=== PATIENT | female | born 1950 | race Caucasian/White ===

== ENCOUNTER 2017-09-17 14:29 | Inpatient (IN) | payer OTHER ==
[2017-09-17] MEDS: FUROSEMIDE 40 MG/4 ML VIAL (J1940) IV ×2 (15:11→23:21)
[2017-09-17] MEDS: ASPIRIN 81 MG CHEW TABLET PO (15:11)
[2017-09-17 15:21] LABS: BASO % 0.2 % (0.0-1.0); EOS % 0.3 % (0.0-3.0); HEMATOCRIT 52.8 % (36.0-47.0); HEMOGLOBIN 15.4 g/dl (12.0-15.5); IMMATURE GRANULOCYTE % 0.7 % (0-3.0); LYMPH # 1.4 10^3/uL (1.5-4.5); LYMPH % 13.1 % (24.0-44.0); MEAN CORPUSCULAR HEMOGLOBIN 28.5 pg (27.0-33.0); MEAN CORPUSCULAR HGB CONC 29.2 g/dl (32.0-36.5); MEAN CORPUSCULAR VOLUME 97.6 fl (80.0-96.0); MONO # 0.8 10^3/uL (0.0-0.8); MONO % 7.6 % (0.0-5.0); NEUTROPHILS # 8.2 10^3/uL (1.8-7.7); NEUTROPHILS % 78.1 % (36.0-66.0); PLATELET COUNT, AUTOMATED 174 10^3/uL (150-450); RED BLOOD COUNT 5.41 10^6/uL (4.00-5.40); RED CELL DISTRIBUTION WIDTH 14.5 % (11.5-14.5); WHITE BLOOD COUNT 10.5 10^3/uL (4.0-10.0)
[2017-09-17] MEDS: IPRATROPIUM 0.5MG/ALBUTEROL 2.5MG INH SOL UD 3ML (DUONEB)(J7620) NEB ×4 (15:22→23:26)
[2017-09-17 15:26] LABS: INR 1.05; PROTHROMBIN TIME 13.8 SECONDS (12.4-14.5)
[2017-09-17 15:28] LABS: VENOUS BASE EXCESS -2.2 (-2.0-2.0); VENOUS HCO3 28.6 MEQ/L (23.0-27.0); VENOUS O2 SATURATION 75.6 % (60.0-80.0); VENOUS PARTIAL PRESSURE CO2 80.1 mmHg (38.0-50.0); VENOUS PARTIAL PRESSURE O2 40.7 mmHg (30.0-50.0); VENOUS STANDARD HCO3 22.1 MEQ/L
[2017-09-17 15:34] LABS: LACTIC ACID SEPSIS PROTOCOL 1.7 MMOL/L (0.4-2.0)
[2017-09-17 15:55] LABS: ALBUMIN 3.2 GM/DL (3.2-5.2); ALBUMIN/GLOBULIN RATIO 0.84 (1.00-1.93); ALKALINE PHOSPHATASE 90 U/L (45-117); ALT/SGPT 20 U/L (12-78); ANION GAP 5 MEQ/L (8-16); AST/SGOT 12 U/L (7-37); BILIRUBIN,DIRECT < 0.1 MG/DL (0.0-0.2); BILIRUBIN,TOTAL 0.3 MG/DL (0.2-1.0); BLOOD UREA NITROGEN 24 MG/DL (7-18); CARBON DIOXIDE LEVEL 30 MEQ/L (21-32); CHLORIDE LEVEL 107 MEQ/L (98-107); CPK CREATINE PHOSPHOKINASE 44 U/L (26-192); CREATININE FOR GFR 1.02 MG/DL (0.55-1.30); GLOMERULAR FILTRATION RATE 57.5 (>45); GLUCOSE, FASTING 121 MG/DL (70-100); POTASSIUM SERUM 4.7 MEQ/L (3.5-5.1); SODIUM LEVEL 142 MEQ/L (136-145); TROPONIN I < 0.02 NG/ML (< 0.10)
[2017-09-17 15:56] LABS: CK-MB VALUE MASS 4.8 NG/ML (<3.6); NT-PRO BNP 8249 PG/ML (<125)
[2017-09-17 16:50] LABS: ABG O2 SATURATION 98.2 % (95.0-99.0)
[2017-09-17 16:52] LABS: ABG BASE EXCESS 1.8 (-2.0-2.0); ABG HCO3 36.4 MEQ/L (22.0-26.0); ABG PARTIAL PRESSURE O2 132.4 mmHg (75.0-100.0); ABG STANDARD HCO3 26.1 MEQ/L (22.0-26.0)
[2017-09-17 16:53] LABS: ABG PARTIAL PRESSURE CO2 119.3 mmHg (35.0-45.0); ABG pH (ARTERIAL) 7.102 UNITS (7.350-7.450)
[2017-09-17] MEDS ORDERED: ONDANSETRON 4MG/2ML VIAL (J2405) IV (18:15)
[2017-09-17] MEDS ORDERED: IPRATROPIUM 0.5MG/ALBUTEROL 2.5MG INH SOL UD 3ML (DUONEB)(J7620) NEB (18:15)
[2017-09-17] MEDS: methylPREDNISolone INJ 125 MG/2 ML VIAL (J2930) IV (18:54)
[2017-09-17 19:07] LABS: ABG BASE EXCESS 4.2 (-2.0-2.0); ABG HCO3 34.4 MEQ/L (22.0-26.0); ABG O2 SATURATION 89.6 % (95.0-99.0); ABG PARTIAL PRESSURE O2 55.4 mmHg (75.0-100.0); ABG TOTAL CO2 36.8 MEQ/L (23.0-31.0); ABG pH (ARTERIAL) 7.261 UNITS (7.350-7.450)
[2017-09-17 19:12] LABS: ABG PARTIAL PRESSURE CO2 78.3 mmHg (35.0-45.0)
[2017-09-17] MEDS: FORMOTEROL FUMARATE 20 MCG/2 ML INHALATION SOLUTION (PERFOROMIST) INH (20:00)
[2017-09-17] MEDS: BUDESONIDE 0.5 MG/2 ML INHALATION SUSPENSION INH (20:00)
[2017-09-17] MEDS: LevoFLOXacin IV 750 MG in APPROPRIATE DILUENT 1 EA IV (23:21)
[2017-09-18] MEDS: methylPREDNISolone INJ 125 MG/2 ML VIAL (J2930) IV ×3 (03:18→18:57)
[2017-09-18] MEDS: IPRATROPIUM 0.5MG/ALBUTEROL 2.5MG INH SOL UD 3ML (DUONEB)(J7620) NEB ×5 (04:00→23:38)
[2017-09-18 04:58] LABS: HEMATOCRIT 47.7 % (36.0-47.0); HEMOGLOBIN 14.1 g/dl (12.0-15.5); MEAN CORPUSCULAR HGB CONC 29.6 g/dl (32.0-36.5); MEAN CORPUSCULAR VOLUME 94.8 fl (80.0-96.0); PLATELET COUNT, AUTOMATED 141 10^3/uL (150-450); RED BLOOD COUNT 5.03 10^6/uL (4.00-5.40); RED CELL DISTRIBUTION WIDTH 14.2 % (11.5-14.5); WHITE BLOOD COUNT 4.2 10^3/uL (4.0-10.0)
[2017-09-18 05:19] LABS: ALBUMIN 2.9 GM/DL (3.2-5.2); ALBUMIN/GLOBULIN RATIO 0.88 (1.00-1.93); ALKALINE PHOSPHATASE 74 U/L (45-117); ALT/SGPT 17 U/L (12-78); ANION GAP 3 MEQ/L (8-16); AST/SGOT 12 U/L (7-37); BILIRUBIN,TOTAL 0.4 MG/DL (0.2-1.0); BLOOD UREA NITROGEN 17 MG/DL (7-18); CALCIUM LEVEL 8.7 MG/DL (8.8-10.2); CARBON DIOXIDE LEVEL 36 MEQ/L (21-32); CHLORIDE LEVEL 106 MEQ/L (98-107); CREATININE FOR GFR 0.62 MG/DL (0.55-1.30); GLOMERULAR FILTRATION RATE > 60.0 (>45); GLUCOSE, FASTING 101 MG/DL (70-100); MAGNESIUM LEVEL 1.8 MG/DL (1.8-2.4); POTASSIUM SERUM 4.3 MEQ/L (3.5-5.1); SODIUM LEVEL 145 MEQ/L (136-145); TOTAL PROTEIN 6.2 GM/DL (6.4-8.2)
[2017-09-18 05:39] LABS: ABG BASE EXCESS 8.2 (-2.0-2.0); ABG HCO3 38.4 MEQ/L (22.0-26.0); ABG O2 SATURATION 90.6 % (95.0-99.0); ABG PARTIAL PRESSURE O2 60.6 mmHg (75.0-100.0); ABG STANDARD HCO3 31.9 MEQ/L (22.0-26.0); ABG TOTAL CO2 40.9 MEQ/L (23.0-31.0); ABG pH (ARTERIAL) 7.289 UNITS (7.350-7.450)
[2017-09-18 05:42] LABS: ABG PARTIAL PRESSURE CO2 81.8 mmHg (35.0-45.0)
[2017-09-18] MEDS: BUDESONIDE 0.5 MG/2 ML INHALATION SUSPENSION INH ×2 (09:07→20:33)
[2017-09-18] MEDS: FORMOTEROL FUMARATE 20 MCG/2 ML INHALATION SOLUTION (PERFOROMIST) INH ×2 (09:07→20:33)
[2017-09-18] MEDS: NICOTINE 21MG/24HR 1 EA TRANSDERMAL TD (09:30)
[2017-09-18] MEDS: ENOXAPARIN 40 MG/0.4 ML SYRINGE (J1650) SC (09:30)
[2017-09-18] MEDS: PANTOPRAZOLE 40MG TAB (PROTONIX) PO (09:31)
[2017-09-18] MEDS: FUROSEMIDE 40 MG/4 ML VIAL (J1940) IV ×2 (09:31→17:10)
[2017-09-19] MEDS: FUROSEMIDE 40 MG/4 ML VIAL (J1940) IV ×2 (00:08)
[2017-09-19] MEDS: LevoFLOXacin IV 750 MG in APPROPRIATE DILUENT 1 EA IV (00:09)
[2017-09-19] MEDS: IPRATROPIUM 0.5MG/ALBUTEROL 2.5MG INH SOL UD 3ML (DUONEB)(J7620) NEB ×6 (03:38→23:20)
[2017-09-19] MEDS: methylPREDNISolone INJ 125 MG/2 ML VIAL (J2930) IV (04:23)
[2017-09-19 06:03] LABS: HEMATOCRIT 47.3 % (36.0-47.0); HEMOGLOBIN 13.7 g/dl (12.0-15.5); MEAN CORPUSCULAR HEMOGLOBIN 28.1 pg (27.0-33.0); MEAN CORPUSCULAR VOLUME 96.9 fl (80.0-96.0); PLATELET COUNT, AUTOMATED 161 10^3/uL (150-450); RED BLOOD COUNT 4.88 10^6/uL (4.00-5.40); RED CELL DISTRIBUTION WIDTH 14.2 % (11.5-14.5); WHITE BLOOD COUNT 6.8 10^3/uL (4.0-10.0)
[2017-09-19 06:24] LABS: ALBUMIN/GLOBULIN RATIO 0.86 (1.00-1.93); ALKALINE PHOSPHATASE 68 U/L (45-117); ALT/SGPT 18 U/L (12-78); ANION GAP 0 MEQ/L (8-16); AST/SGOT 13 U/L (7-37); BILIRUBIN,TOTAL 0.4 MG/DL (0.2-1.0); BLOOD UREA NITROGEN 21 MG/DL (7-18); CARBON DIOXIDE LEVEL 42 MEQ/L (21-32); CHLORIDE LEVEL 104 MEQ/L (98-107); CREATININE FOR GFR 0.88 MG/DL (0.55-1.30); GLOMERULAR FILTRATION RATE > 60.0 (>45); GLUCOSE, FASTING 126 MG/DL (70-100); MAGNESIUM LEVEL 1.9 MG/DL (1.8-2.4); POTASSIUM SERUM 4.2 MEQ/L (3.5-5.1); SODIUM LEVEL 146 MEQ/L (136-145); TOTAL PROTEIN 6.5 GM/DL (6.4-8.2)
[2017-09-19] MEDS: BUDESONIDE 0.5 MG/2 ML INHALATION SUSPENSION INH ×2 (08:06→21:35)
[2017-09-19] MEDS: FORMOTEROL FUMARATE 20 MCG/2 ML INHALATION SOLUTION (PERFOROMIST) INH ×2 (08:06→21:36)
[2017-09-19] MEDS: PANTOPRAZOLE 40MG TAB (PROTONIX) PO (08:54)
[2017-09-19] MEDS: ENOXAPARIN 40 MG/0.4 ML SYRINGE (J1650) SC (08:55)
[2017-09-19] MEDS: NICOTINE 21MG/24HR 1 EA TRANSDERMAL TD (08:55)
[2017-09-19] MEDS: FUROSEMIDE 20 MG TAB PO (08:55)
[2017-09-19] MEDS: ACETAMINOPHEN TAB 650MG DOSE (2X325MG) PO (08:56)
[2017-09-19] MEDS: LevoFLOXacin 250 MG TABLET PO (14:43)
[2017-09-19] MEDS: methylPREDNISolone INJ 40 MG/1 ML VIAL (J2920) IV (14:43)
[2017-09-20] MEDS: methylPREDNISolone INJ 40 MG/1 ML VIAL (J2920) IV (03:15)
[2017-09-20] MEDS: IPRATROPIUM 0.5MG/ALBUTEROL 2.5MG INH SOL UD 3ML (DUONEB)(J7620) NEB ×6 (04:00→23:06)
[2017-09-20] MEDS: LevoFLOXacin 250 MG TABLET PO (05:53)
[2017-09-20 07:21] LABS: HEMATOCRIT 46.4 % (36.0-47.0); HEMOGLOBIN 13.3 g/dl (12.0-15.5); MEAN CORPUSCULAR HEMOGLOBIN 28.2 pg (27.0-33.0); MEAN CORPUSCULAR HGB CONC 28.7 g/dl (32.0-36.5); MEAN CORPUSCULAR VOLUME 98.5 fl (80.0-96.0); PLATELET COUNT, AUTOMATED 145 10^3/uL (150-450); RED BLOOD COUNT 4.71 10^6/uL (4.00-5.40); RED CELL DISTRIBUTION WIDTH 14.4 % (11.5-14.5); WHITE BLOOD COUNT 7.2 10^3/uL (4.0-10.0)
[2017-09-20 08:00] LABS: ALBUMIN 2.9 GM/DL (3.2-5.2); ALBUMIN/GLOBULIN RATIO 0.91 (1.00-1.93); ALKALINE PHOSPHATASE 63 U/L (45-117); ALT/SGPT 72 U/L (12-78); ANION GAP 0 MEQ/L (8-16); AST/SGOT 58 U/L (7-37); BILIRUBIN,TOTAL 0.3 MG/DL (0.2-1.0); BLOOD UREA NITROGEN 18 MG/DL (7-18); CALCIUM LEVEL 9.2 MG/DL (8.8-10.2); CARBON DIOXIDE LEVEL 43 MEQ/L (21-32); CHLORIDE LEVEL 105 MEQ/L (98-107); CREATININE FOR GFR 0.73 MG/DL (0.55-1.30); GLOMERULAR FILTRATION RATE > 60.0 (>45); GLUCOSE, FASTING 130 MG/DL (70-100); MAGNESIUM LEVEL 2.3 MG/DL (1.8-2.4); POTASSIUM SERUM 4.3 MEQ/L (3.5-5.1); SODIUM LEVEL 148 MEQ/L (136-145); TOTAL PROTEIN 6.1 GM/DL (6.4-8.2)
[2017-09-20] MEDS: PANTOPRAZOLE 40MG TAB (PROTONIX) PO (08:24)
[2017-09-20] MEDS: FUROSEMIDE 20 MG TAB PO ×2 (08:25→11:06)
[2017-09-20] MEDS: NICOTINE 21MG/24HR 1 EA TRANSDERMAL TD (08:25)
[2017-09-20] MEDS: ENOXAPARIN 40 MG/0.4 ML SYRINGE (J1650) SC (08:25)
[2017-09-20] MEDS: FORMOTEROL FUMARATE 20 MCG/2 ML INHALATION SOLUTION (PERFOROMIST) INH ×2 (08:30→23:06)
[2017-09-20] MEDS: BUDESONIDE 0.5 MG/2 ML INHALATION SUSPENSION INH ×2 (08:30→23:06)
[2017-09-20] MEDS: predniSONE 20 MG TAB PO (11:06)
[2017-09-20] MEDS: D5W 1,000 ML IV (14:21)
[2017-09-20] MEDS: FUROSEMIDE 40 MG TAB PO (16:55)
[2017-09-20 19:06] LABS: ANION GAP 3 MEQ/L (8-16); BLOOD UREA NITROGEN 19 MG/DL (7-18); CALCIUM LEVEL 8.8 MG/DL (8.8-10.2); CARBON DIOXIDE LEVEL 42 MEQ/L (21-32); CHLORIDE LEVEL 101 MEQ/L (98-107); CREATININE FOR GFR 0.88 MG/DL (0.55-1.30); GLOMERULAR FILTRATION RATE > 60.0 (>45); GLUCOSE, FASTING 176 MG/DL (70-100); POTASSIUM SERUM 3.7 MEQ/L (3.5-5.1); SODIUM LEVEL 146 MEQ/L (136-145)
[2017-09-21 00:40] LABS: ANION GAP 2 MEQ/L (8-16); BLOOD UREA NITROGEN 19 MG/DL (7-18); CALCIUM LEVEL 8.8 MG/DL (8.8-10.2); CARBON DIOXIDE LEVEL 44 MEQ/L (21-32); CHLORIDE LEVEL 100 MEQ/L (98-107); CREATININE FOR GFR 0.81 MG/DL (0.55-1.30); GLOMERULAR FILTRATION RATE > 60.0 (>45); GLUCOSE, FASTING 148 MG/DL (70-100); POTASSIUM SERUM 3.3 MEQ/L (3.5-5.1); SODIUM LEVEL 146 MEQ/L (136-145)
[2017-09-21] MEDS: IPRATROPIUM 0.5MG/ALBUTEROL 2.5MG INH SOL UD 3ML (DUONEB)(J7620) NEB ×3 (04:08→11:17)
[2017-09-21] MEDS: LevoFLOXacin 250 MG TABLET PO (05:22)
[2017-09-21 05:55] LABS: HEMATOCRIT 47.4 % (36.0-47.0); HEMOGLOBIN 13.5 g/dl (12.0-15.5); MEAN CORPUSCULAR HEMOGLOBIN 27.7 pg (27.0-33.0); MEAN CORPUSCULAR HGB CONC 28.5 g/dl (32.0-36.5); MEAN CORPUSCULAR VOLUME 97.3 fl (80.0-96.0); PLATELET COUNT, AUTOMATED 115 10^3/uL (150-450); RED BLOOD COUNT 4.87 10^6/uL (4.00-5.40); RED CELL DISTRIBUTION WIDTH 14.1 % (11.5-14.5); WHITE BLOOD COUNT 7.6 10^3/uL (4.0-10.0)
[2017-09-21 06:37] LABS: CARBON DIOXIDE LEVEL 44 MEQ/L (21-32)
[2017-09-21 06:38] LABS: ANION GAP 1 MEQ/L (8-16); BLOOD UREA NITROGEN 18 MG/DL (7-18); CHLORIDE LEVEL 100 MEQ/L (98-107); CREATININE FOR GFR 0.59 MG/DL (0.55-1.30); GLOMERULAR FILTRATION RATE > 60.0 (>45); GLUCOSE, FASTING 104 MG/DL (70-100); POTASSIUM SERUM 3.3 MEQ/L (3.5-5.1); SODIUM LEVEL 145 MEQ/L (136-145)
[2017-09-21 06:39] LABS: ALBUMIN 2.8 GM/DL (3.2-5.2); ALBUMIN/GLOBULIN RATIO 0.88 (1.00-1.93); ALKALINE PHOSPHATASE 57 U/L (45-117); ALT/SGPT 77 U/L (12-78); AST/SGOT 49 U/L (7-37); BILIRUBIN,TOTAL 0.4 MG/DL (0.2-1.0); CALCIUM LEVEL 8.8 MG/DL (8.8-10.2)
[2017-09-21] MEDS: BUDESONIDE 0.5 MG/2 ML INHALATION SUSPENSION INH (07:10)
[2017-09-21] MEDS: FORMOTEROL FUMARATE 20 MCG/2 ML INHALATION SOLUTION (PERFOROMIST) INH (07:10)
[2017-09-21] MEDS: PANTOPRAZOLE 40MG TAB (PROTONIX) PO (07:48)
[2017-09-21] MEDS: FUROSEMIDE 40 MG TAB PO (07:49)
[2017-09-21] MEDS: ENOXAPARIN 40 MG/0.4 ML SYRINGE (J1650) SC (07:49)
[2017-09-21] MEDS: NICOTINE 21MG/24HR 1 EA TRANSDERMAL TD (07:49)
[2017-09-21] MEDS: predniSONE 20 MG TAB PO (07:49)
[2017-09-21] MEDS: D5W 1,000 ML IV (07:50)
[2017-09-21] MEDS ORDERED: FUROSEMIDE 40 MG TAB PO (09:00)
[2017-09-21 09:49] LABS: MAGNESIUM LEVEL 1.9 MG/DL (1.8-2.4)
== END 2017-09-21 14:44 | disposition home or self-care (01) | DRG 291 ==
LOC: M MSPAV 09-20 00:20 → M PCU 09-18 15:33 → M ED 14:29 → M ED INP 18:08 → M ICU 21:03
DX: I50.31 Acute diastolic (congestive) heart failure (principal); J96.02 Acute respiratory failure with hypercapnia; J18.9 Pneumonia, unspecified organism; J44.1 Chronic obstructive pulmonary disease with (acute) exacerbation; E87.1 Hypo-osmolality and hyponatremia; F17.200 Nicotine dependence, unspecified, uncomplicated; Z79.899 Other long term (current) drug therapy; Z88.0 Allergy status to penicillin; D72.829 Elevated white blood cell count, unspecified

== ENCOUNTER 2017-10-16 15:11 | Inpatient (IN) | payer OTHER ==
[2017-10-16] MEDS: methylPREDNISolone INJ 125 MG/2 ML VIAL (J2930) IV (16:13)
[2017-10-16 16:19] LABS: ABG HCO3 38.1 MEQ/L (22.0-26.0); ABG PARTIAL PRESSURE O2 82.8 mmHg (75.0-100.0); ABG STANDARD HCO3 31.8 MEQ/L (22.0-26.0); ABG TOTAL CO2 40.6 MEQ/L (23.0-31.0); ABG pH (ARTERIAL) 7.288 UNITS (7.350-7.450)
[2017-10-16 16:22] LABS: BASO % 0.3 % (0.0-1.0); EOS % 0.6 % (0.0-3.0); HEMOGLOBIN 13.9 g/dl (12.0-15.5); IMMATURE GRANULOCYTE % 0.6 % (0-3.0); LYMPH # 1.3 10^3/uL (1.5-4.5); LYMPH % 19.3 % (24.0-44.0); MEAN CORPUSCULAR HEMOGLOBIN 26.7 pg (27.0-33.0); MEAN CORPUSCULAR HGB CONC 28.4 g/dl (32.0-36.5); MEAN CORPUSCULAR VOLUME 94.2 fl (80.0-96.0); MONO # 0.5 10^3/uL (0.0-0.8); MONO % 7.6 % (0.0-5.0); NEUTROPHILS # 4.8 10^3/uL (1.8-7.7); NEUTROPHILS % 71.6 % (36.0-66.0); PLATELET COUNT, AUTOMATED 183 10^3/uL (150-450); RED CELL DISTRIBUTION WIDTH 16.1 % (11.5-14.5); WHITE BLOOD COUNT 6.7 10^3/uL (4.0-10.0)
[2017-10-16 16:23] LABS: ABG PARTIAL PRESSURE CO2 81.5 mmHg (35.0-45.0)
[2017-10-16 16:35] LABS: ANION GAP 2 MEQ/L (8-16); BLOOD UREA NITROGEN 14 MG/DL (7-18); CALCIUM LEVEL 9.5 MG/DL (8.8-10.2); CARBON DIOXIDE LEVEL 41 MEQ/L (21-32); CHLORIDE LEVEL 104 MEQ/L (98-107); CPK CREATINE PHOSPHOKINASE 30 U/L (26-192); CREATININE FOR GFR 0.66 MG/DL (0.55-1.30); GLOMERULAR FILTRATION RATE > 60.0 (>45); GLUCOSE, FASTING 128 MG/DL (70-100); POTASSIUM SERUM 3.6 MEQ/L (3.5-5.1); SODIUM LEVEL 147 MEQ/L (136-145); TROPONIN I < 0.02 NG/ML (< 0.10)
[2017-10-16 16:40] LABS: CK-MB VALUE MASS 1.9 NG/ML (<3.6); MB/CK RELATIVE INDEX 6.33 (< OR =4); NT-PRO BNP 3243 PG/ML (<125); THYROID STIMULATING HORMONE 0.527 uIU/ML (0.358-3.740)
[2017-10-16 16:56] LABS: LACTIC ACID SEPSIS PROTOCOL 0.9 MMOL/L (0.4-2.0)
[2017-10-16 16:58] LABS: PROTHROMBIN TIME 13.3 SECONDS (12.4-14.5)
[2017-10-16 17:02] LABS: PARTIAL THROMBOPLASTIN TIME 25.9 SECONDS (26.8-37.9)
[2017-10-16] MEDS: FUROSEMIDE 40 MG/4 ML VIAL (J1940) IV (17:49)
[2017-10-16] MEDS ORDERED: FAMOTIDINE 20 MG TAB PO (19:00)
[2017-10-16] MEDS ORDERED: IPRATROPIUM 0.5MG/ALBUTEROL 2.5MG INH SOL UD 3ML (DUONEB)(J7620) NEB (19:00)
[2017-10-16] MEDS: PANTOPRAZOLE 40MG TAB (PROTONIX) PO (20:00)
[2017-10-16] MEDS: AZITHROMYCIN 250 MG TAB PO (20:11)
[2017-10-16] MEDS: IPRATROPIUM 0.5MG/ALBUTEROL 2.5MG INH SOL UD 3ML (DUONEB)(J7620) NEB (20:12)
[2017-10-16] MEDS: ADVAIR HFA 115/21MCG INHALER INH (21:00)
[2017-10-17] MEDS: methylPREDNISolone INJ 125 MG/2 ML VIAL (J2930) IV ×3 (00:26→15:18)
[2017-10-17] MEDS: FUROSEMIDE 40 MG/4 ML VIAL (J1940) IV ×2 (00:27→12:52)
[2017-10-17 07:12] LABS: BASO % 0.2 % (0.0-1.0); HEMATOCRIT 47.1 % (36.0-47.0); HEMOGLOBIN 13.4 g/dl (12.0-15.5); IMMATURE GRANULOCYTE % 0.5 % (0-3.0); LYMPH # 0.7 10^3/uL (1.5-4.5); LYMPH % 11.1 % (24.0-44.0); MEAN CORPUSCULAR HGB CONC 28.5 g/dl (32.0-36.5); MEAN CORPUSCULAR VOLUME 94.8 fl (80.0-96.0); MONO # 0.1 10^3/uL (0.0-0.8); MONO % 2.1 % (0.0-5.0); NEUTROPHILS # 5.4 10^3/uL (1.8-7.7); NEUTROPHILS % 86.1 % (36.0-66.0); PLATELET COUNT, AUTOMATED 160 10^3/uL (150-450); RED BLOOD COUNT 4.97 10^6/uL (4.00-5.40); RED CELL DISTRIBUTION WIDTH 15.7 % (11.5-14.5); WHITE BLOOD COUNT 6.3 10^3/uL (4.0-10.0)
[2017-10-17 07:16] LABS: ABG BASE EXCESS 14.2 (-2.0-2.0); ABG HCO3 46.7 MEQ/L (22.0-26.0); ABG PARTIAL PRESSURE CO2 110.3 mmHg (35.0-45.0); ABG TOTAL CO2 50.1 MEQ/L (23.0-31.0); ABG pH (ARTERIAL) 7.245 UNITS (7.350-7.450)
[2017-10-17 07:17] LABS: ABG O2 SATURATION 94.9 % (95.0-99.0)
[2017-10-17] MEDS: ADVAIR HFA 115/21MCG INHALER INH ×2 (07:30→19:46)
[2017-10-17] MEDS: IPRATROPIUM 0.5MG/ALBUTEROL 2.5MG INH SOL UD 3ML (DUONEB)(J7620) NEB ×4 (07:30→20:00)
[2017-10-17 07:31] LABS: ANION GAP 1 MEQ/L (8-16); BLOOD UREA NITROGEN 17 MG/DL (7-18); CALCIUM LEVEL 9.1 MG/DL (8.8-10.2); CARBON DIOXIDE LEVEL 43 MEQ/L (21-32); CHLORIDE LEVEL 103 MEQ/L (98-107); CREATININE FOR GFR 0.52 MG/DL (0.55-1.30); GLOMERULAR FILTRATION RATE > 60.0 (>45); GLUCOSE, FASTING 146 MG/DL (70-100); POTASSIUM SERUM 4.3 MEQ/L (3.5-5.1); SODIUM LEVEL 147 MEQ/L (136-145)
[2017-10-17] MEDS: PANTOPRAZOLE 40MG TAB (PROTONIX) PO ×2 (08:18→13:25)
[2017-10-17] MEDS: ENOXAPARIN 40 MG/0.4 ML SYRINGE (J1650) SC (08:18)
[2017-10-17 11:05] LABS: ABG BASE EXCESS 12.4 (-2.0-2.0); ABG HCO3 43.6 MEQ/L (22.0-26.0); ABG O2 SATURATION 95.4 % (95.0-99.0); ABG PARTIAL PRESSURE O2 79.7 mmHg (75.0-100.0); ABG STANDARD HCO3 36.2 MEQ/L (22.0-26.0); ABG TOTAL CO2 46.6 MEQ/L (23.0-31.0); ABG pH (ARTERIAL) 7.279 UNITS (7.350-7.450)
[2017-10-17 11:07] LABS: ABG PARTIAL PRESSURE CO2 95.2 mmHg (35.0-45.0)
[2017-10-17 14:01] LABS: D-DIMER QUANT 3096.9 ng/ml (<500)
[2017-10-17] MEDS: NICOTINE 21MG/24HR 1 EA TRANSDERMAL TD (15:18)
[2017-10-17] MEDS: ENOXAPARIN 100MG/1ML SYRINGE (J1650) SC (20:09)
[2017-10-18] MEDS: methylPREDNISolone INJ 125 MG/2 ML VIAL (J2930) IV ×3 (01:40→16:21)
[2017-10-18 05:18] LABS: HEMATOCRIT 43.5 % (36.0-47.0); HEMOGLOBIN 12.3 g/dl (12.0-15.5); IMMATURE GRANULOCYTE % 0.4 % (0-3.0); LYMPH # 0.9 10^3/uL (1.5-4.5); LYMPH % 12.6 % (24.0-44.0); MEAN CORPUSCULAR HEMOGLOBIN 26.6 pg (27.0-33.0); MEAN CORPUSCULAR HGB CONC 28.3 g/dl (32.0-36.5); MONO # 0.3 10^3/uL (0.0-0.8); MONO % 3.7 % (0.0-5.0); NEUTROPHILS # 5.6 10^3/uL (1.8-7.7); NEUTROPHILS % 83.3 % (36.0-66.0); PLATELET COUNT, AUTOMATED 157 10^3/uL (150-450); RED BLOOD COUNT 4.63 10^6/uL (4.00-5.40); RED CELL DISTRIBUTION WIDTH 15.6 % (11.5-14.5); WHITE BLOOD COUNT 6.7 10^3/uL (4.0-10.0)
[2017-10-18 05:39] LABS: BLOOD UREA NITROGEN 19 MG/DL (7-18); CHLORIDE LEVEL 99 MEQ/L (98-107); CREATININE FOR GFR 0.62 MG/DL (0.55-1.30); GLOMERULAR FILTRATION RATE > 60.0 (>45); GLUCOSE, FASTING 125 MG/DL (70-100); POTASSIUM SERUM 4.5 MEQ/L (3.5-5.1); SODIUM LEVEL 147 MEQ/L (136-145)
[2017-10-18 05:51] LABS: ANION GAP 1 MEQ/L (8-16); CARBON DIOXIDE LEVEL 47 MEQ/L (21-32)
[2017-10-18 06:09] LABS: ABG BASE EXCESS 16.7 (-2.0-2.0); ABG HCO3 46.2 MEQ/L (22.0-26.0); ABG O2 SATURATION 96.3 % (95.0-99.0); ABG STANDARD HCO3 40.7 MEQ/L (22.0-26.0); ABG TOTAL CO2 48.7 MEQ/L (23.0-31.0)
[2017-10-18 06:12] LABS: ABG PARTIAL PRESSURE CO2 81.8 mmHg (35.0-45.0)
[2017-10-18] MEDS: ADVAIR HFA 115/21MCG INHALER INH ×2 (07:56→19:40)
[2017-10-18] MEDS: IPRATROPIUM 0.5MG/ALBUTEROL 2.5MG INH SOL UD 3ML (DUONEB)(J7620) NEB ×4 (07:57→19:40)
[2017-10-18] MEDS ORDERED: ISOVUE-370 76% 100ML VIAL (Q9967) As Ordered (08:28)
[2017-10-18] MEDS: PANTOPRAZOLE 40MG TAB (PROTONIX) PO (09:12)
[2017-10-18] MEDS: NICOTINE 21MG/24HR 1 EA TRANSDERMAL TD (09:12)
[2017-10-18] MEDS: ENOXAPARIN 100MG/1ML SYRINGE (J1650) SC (09:13)
[2017-10-18 10:21] LABS: ABG BASE EXCESS 12.6 (-2.0-2.0); ABG HCO3 41.8 MEQ/L (22.0-26.0); ABG PARTIAL PRESSURE O2 103.2 mmHg (75.0-100.0); ABG STANDARD HCO3 36.4 MEQ/L (22.0-26.0); ABG TOTAL CO2 44.2 MEQ/L (23.0-31.0); ABG pH (ARTERIAL) 7.346 UNITS (7.350-7.450)
[2017-10-18 10:24] LABS: ABG PARTIAL PRESSURE CO2 78.2 mmHg (35.0-45.0)
[2017-10-18] MEDS: ENOXAPARIN 80 MG/0.8 ML SYRINGE (J1650) SC (21:03)
[2017-10-19] MEDS: methylPREDNISolone INJ 125 MG/2 ML VIAL (J2930) IV ×2 (00:33→08:18)
[2017-10-19 05:13] LABS: BASO % 0.2 % (0.0-1.0); HEMATOCRIT 43.1 % (36.0-47.0); HEMOGLOBIN 12.4 g/dl (12.0-15.5); IMMATURE GRANULOCYTE % 0.5 % (0-3.0); LYMPH # 0.5 10^3/uL (1.5-4.5); LYMPH % 8.5 % (24.0-44.0); MEAN CORPUSCULAR HEMOGLOBIN 26.6 pg (27.0-33.0); MEAN CORPUSCULAR HGB CONC 28.8 g/dl (32.0-36.5); MEAN CORPUSCULAR VOLUME 92.5 fl (80.0-96.0); MONO # 0.2 10^3/uL (0.0-0.8); MONO % 3.2 % (0.0-5.0); NEUTROPHILS # 5.1 10^3/uL (1.8-7.7); NEUTROPHILS % 87.6 % (36.0-66.0); PLATELET COUNT, AUTOMATED 178 10^3/uL (150-450); RED BLOOD COUNT 4.66 10^6/uL (4.00-5.40); RED CELL DISTRIBUTION WIDTH 15.4 % (11.5-14.5); WHITE BLOOD COUNT 5.9 10^3/uL (4.0-10.0)
[2017-10-19 05:31] LABS: ANION GAP 4 MEQ/L (8-16); BLOOD UREA NITROGEN 17 MG/DL (7-18); CALCIUM LEVEL 9.4 MG/DL (8.8-10.2); CARBON DIOXIDE LEVEL 42 MEQ/L (21-32); CHLORIDE LEVEL 101 MEQ/L (98-107); CREATININE FOR GFR 0.52 MG/DL (0.55-1.30); GLOMERULAR FILTRATION RATE > 60.0 (>45); GLUCOSE, FASTING 161 MG/DL (70-100); POTASSIUM SERUM 3.7 MEQ/L (3.5-5.1); SODIUM LEVEL 147 MEQ/L (136-145)
[2017-10-19 05:56] LABS: ABG BASE EXCESS 13.5 (-2.0-2.0); ABG HCO3 42.3 MEQ/L (22.0-26.0); ABG O2 SATURATION 95.6 % (95.0-99.0); ABG PARTIAL PRESSURE O2 79.2 mmHg (75.0-100.0); ABG STANDARD HCO3 37.2 MEQ/L (22.0-26.0); ABG TOTAL CO2 44.6 MEQ/L (23.0-31.0); ABG pH (ARTERIAL) 7.366 UNITS (7.350-7.450)
[2017-10-19 05:59] LABS: ABG PARTIAL PRESSURE CO2 75.5 mmHg (35.0-45.0)
[2017-10-19] MEDS: ADVAIR HFA 115/21MCG INHALER INH ×2 (07:39→21:42)
[2017-10-19] MEDS: IPRATROPIUM 0.5MG/ALBUTEROL 2.5MG INH SOL UD 3ML (DUONEB)(J7620) NEB ×4 (07:42→20:00)
[2017-10-19] MEDS: NICOTINE 21MG/24HR 1 EA TRANSDERMAL TD (08:17)
[2017-10-19] MEDS: ENOXAPARIN 80 MG/0.8 ML SYRINGE (J1650) SC ×2 (08:18→20:19)
[2017-10-19] MEDS: PANTOPRAZOLE 40MG TAB (PROTONIX) PO (08:18)
[2017-10-19] MEDS: FUROSEMIDE 40 MG TAB PO (08:58)
[2017-10-19] MEDS: ACETAMINOPHEN 500 MG TAB PO (08:59)
[2017-10-20 06:24] LABS: HEMATOCRIT 44.6 % (36.0-47.0); HEMOGLOBIN 12.9 g/dl (12.0-15.5); IMMATURE GRANULOCYTE % 0.6 % (0-3.0); LYMPH # 1.2 10^3/uL (1.5-4.5); MEAN CORPUSCULAR HEMOGLOBIN 26.8 pg (27.0-33.0); MEAN CORPUSCULAR HGB CONC 28.9 g/dl (32.0-36.5); MEAN CORPUSCULAR VOLUME 92.5 fl (80.0-96.0); MONO # 0.4 10^3/uL (0.0-0.8); MONO % 8.6 % (0.0-5.0); NEUTROPHILS # 3.5 10^3/uL (1.8-7.7); NEUTROPHILS % 67.8 % (36.0-66.0); PLATELET COUNT, AUTOMATED 184 10^3/uL (150-450); RED BLOOD COUNT 4.82 10^6/uL (4.00-5.40); RED CELL DISTRIBUTION WIDTH 15.4 % (11.5-14.5); WHITE BLOOD COUNT 5.1 10^3/uL (4.0-10.0)
[2017-10-20 06:46] LABS: BLOOD UREA NITROGEN 18 MG/DL (7-18); CALCIUM LEVEL 9.1 MG/DL (8.8-10.2); CHLORIDE LEVEL 103 MEQ/L (98-107); CREATININE FOR GFR 0.48 MG/DL (0.55-1.30); GLOMERULAR FILTRATION RATE > 60.0 (>45); GLUCOSE, FASTING 86 MG/DL (70-100); POTASSIUM SERUM 3.5 MEQ/L (3.5-5.1); SODIUM LEVEL 152 MEQ/L (136-145)
[2017-10-20 06:59] LABS: ANION GAP 1 MEQ/L (8-16)
[2017-10-20 07:03] LABS: CARBON DIOXIDE LEVEL 48 MEQ/L (21-32)
[2017-10-20] MEDS: IPRATROPIUM 0.5MG/ALBUTEROL 2.5MG INH SOL UD 3ML (DUONEB)(J7620) NEB ×4 (08:00→20:00)
[2017-10-20] MEDS: ADVAIR HFA 115/21MCG INHALER INH ×2 (08:35→20:44)
[2017-10-20] MEDS: predniSONE 20 MG TAB PO (08:59)
[2017-10-20] MEDS: FUROSEMIDE 40 MG TAB PO (09:00)
[2017-10-20] MEDS: ENOXAPARIN 80 MG/0.8 ML SYRINGE (J1650) SC ×2 (09:00→21:11)
[2017-10-20] MEDS: PANTOPRAZOLE 40MG TAB (PROTONIX) PO (09:00)
[2017-10-20] MEDS: NICOTINE 21MG/24HR 1 EA TRANSDERMAL TD (09:01)
[2017-10-20] MEDS: D5W 1,000 ML IV (09:02)
[2017-10-20 14:35] LABS: ABG BASE EXCESS 15.7 (-2.0-2.0); ABG HCO3 43.9 MEQ/L (22.0-26.0); ABG O2 SATURATION 93.2 % (95.0-99.0); ABG PARTIAL PRESSURE O2 64.2 mmHg (75.0-100.0); ABG STANDARD HCO3 39.5 MEQ/L (22.0-26.0); ABG TOTAL CO2 46.1 MEQ/L (23.0-31.0); ABG pH (ARTERIAL) 7.409 UNITS (7.350-7.450)
[2017-10-20] MEDS: ACETAMINOPHEN 500 MG TAB PO (15:18)
[2017-10-21] MEDS: D5W 1,000 ML IV (00:55)
[2017-10-21 06:22] LABS: BASO % 0.2 % (0.0-1.0); EOS % 0.2 % (0.0-3.0); HEMATOCRIT 43.2 % (36.0-47.0); HEMOGLOBIN 12.6 g/dl (12.0-15.5); IMMATURE GRANULOCYTE % 0.7 % (0-3.0); LYMPH % 22.5 % (24.0-44.0); MEAN CORPUSCULAR HEMOGLOBIN 26.8 pg (27.0-33.0); MEAN CORPUSCULAR HGB CONC 29.2 g/dl (32.0-36.5); MEAN CORPUSCULAR VOLUME 91.9 fl (80.0-96.0); MONO # 0.4 10^3/uL (0.0-0.8); MONO % 8.8 % (0.0-5.0); NEUTROPHILS # 2.9 10^3/uL (1.8-7.7); NEUTROPHILS % 67.6 % (36.0-66.0); PLATELET COUNT, AUTOMATED 190 10^3/uL (150-450); RED CELL DISTRIBUTION WIDTH 15.3 % (11.5-14.5); WHITE BLOOD COUNT 4.2 10^3/uL (4.0-10.0)
[2017-10-21 06:37] LABS: ANION GAP 2 MEQ/L (8-16); BLOOD UREA NITROGEN 14 MG/DL (7-18); CALCIUM LEVEL 8.8 MG/DL (8.8-10.2); CARBON DIOXIDE LEVEL 44 MEQ/L (21-32); CHLORIDE LEVEL 102 MEQ/L (98-107); CREATININE FOR GFR 0.46 MG/DL (0.55-1.30); GLOMERULAR FILTRATION RATE > 60.0 (>45); GLUCOSE, FASTING 89 MG/DL (70-100); POTASSIUM SERUM 3.3 MEQ/L (3.5-5.1); SODIUM LEVEL 148 MEQ/L (136-145)
[2017-10-21 07:32] LABS: ABG BASE EXCESS 11.8 (-2.0-2.0); ABG HCO3 39.5 MEQ/L (22.0-26.0); ABG O2 SATURATION 97.6 % (95.0-99.0); ABG PARTIAL PRESSURE O2 93.9 mmHg (75.0-100.0); ABG STANDARD HCO3 35.6 MEQ/L (22.0-26.0); ABG TOTAL CO2 41.5 MEQ/L (23.0-31.0); ABG pH (ARTERIAL) 7.398 UNITS (7.350-7.450)
[2017-10-21 07:35] LABS: ABG PARTIAL PRESSURE CO2 65.5 mmHg (35.0-45.0)
[2017-10-21] MEDS: ADVAIR HFA 115/21MCG INHALER INH ×2 (07:44→21:48)
[2017-10-21] MEDS: IPRATROPIUM 0.5MG/ALBUTEROL 2.5MG INH SOL UD 3ML (DUONEB)(J7620) NEB ×4 (07:45→20:00)
[2017-10-21] MEDS: FUROSEMIDE 40 MG TAB PO (10:07)
[2017-10-21] MEDS: predniSONE 20 MG TAB PO (10:07)
[2017-10-21] MEDS: NICOTINE 21MG/24HR 1 EA TRANSDERMAL TD (10:08)
[2017-10-21] MEDS: PANTOPRAZOLE 40MG TAB (PROTONIX) PO (10:08)
[2017-10-21] MEDS: ACETAMINOPHEN 500 MG TAB PO (10:09)
[2017-10-21] MEDS: ENOXAPARIN 80 MG/0.8 ML SYRINGE (J1650) SC ×2 (10:09→20:05)
[2017-10-21] MEDS: POTASSIUM CHLORIDE INJ 40 MEQ in D5W 1,000 ML IV (10:10)
[2017-10-22] MEDS: POTASSIUM CHLORIDE INJ 40 MEQ in D5W 1,000 ML IV (04:12)
[2017-10-22 06:00] LABS: BASO % 0.2 % (0.0-1.0); EOS % 0.2 % (0.0-3.0); HEMATOCRIT 44.5 % (36.0-47.0); HEMOGLOBIN 12.7 g/dl (12.0-15.5); IMMATURE GRANULOCYTE % 1.1 % (0-3.0); LYMPH # 1.4 10^3/uL (1.5-4.5); LYMPH % 28.7 % (24.0-44.0); MEAN CORPUSCULAR HEMOGLOBIN 26.2 pg (27.0-33.0); MEAN CORPUSCULAR HGB CONC 28.5 g/dl (32.0-36.5); MEAN CORPUSCULAR VOLUME 91.9 fl (80.0-96.0); MONO # 0.4 10^3/uL (0.0-0.8); MONO % 7.6 % (0.0-5.0); NEUTROPHILS % 62.2 % (36.0-66.0); PLATELET COUNT, AUTOMATED 188 10^3/uL (150-450); RED BLOOD COUNT 4.84 10^6/uL (4.00-5.40); RED CELL DISTRIBUTION WIDTH 15.6 % (11.5-14.5); WHITE BLOOD COUNT 4.7 10^3/uL (4.0-10.0)
[2017-10-22 06:23] LABS: CARBON DIOXIDE LEVEL 45 MEQ/L (21-32)
[2017-10-22 06:24] LABS: ANION GAP 2 MEQ/L (8-16); BLOOD UREA NITROGEN 12 MG/DL (7-18); CHLORIDE LEVEL 101 MEQ/L (98-107); CREATININE FOR GFR 0.46 MG/DL (0.55-1.30); GLOMERULAR FILTRATION RATE > 60.0 (>45); GLUCOSE, FASTING 92 MG/DL (70-100); POTASSIUM SERUM 3.7 MEQ/L (3.5-5.1); SODIUM LEVEL 148 MEQ/L (136-145)
[2017-10-22] MEDS: IPRATROPIUM 0.5MG/ALBUTEROL 2.5MG INH SOL UD 3ML (DUONEB)(J7620) NEB ×4 (08:00→20:00)
[2017-10-22 09:03] LABS: ABG BASE EXCESS 13.9 (-2.0-2.0); ABG HCO3 41.8 MEQ/L (22.0-26.0); ABG O2 SATURATION 97.4 % (95.0-99.0); ABG PARTIAL PRESSURE O2 89.6 mmHg (75.0-100.0); ABG STANDARD HCO3 37.8 MEQ/L (22.0-26.0); ABG TOTAL CO2 43.9 MEQ/L (23.0-31.0)
[2017-10-22 09:05] LABS: ABG PARTIAL PRESSURE CO2 67.5 mmHg (35.0-45.0)
[2017-10-22] MEDS: ADVAIR HFA 115/21MCG INHALER INH ×2 (09:55→21:00)
[2017-10-22] MEDS: ENOXAPARIN 80 MG/0.8 ML SYRINGE (J1650) SC ×2 (10:09→20:25)
[2017-10-22] MEDS: NICOTINE 21MG/24HR 1 EA TRANSDERMAL TD (10:09)
[2017-10-22] MEDS: predniSONE 20 MG TAB PO (10:09)
[2017-10-22] MEDS: PANTOPRAZOLE 40MG TAB (PROTONIX) PO (10:09)
[2017-10-22] MEDS: ACETAMINOPHEN 500 MG TAB PO (10:10)
[2017-10-22] MEDS: FUROSEMIDE 40 MG TAB PO (10:10)
[2017-10-23] MEDS: IPRATROPIUM 0.5MG/ALBUTEROL 2.5MG INH SOL UD 3ML (DUONEB)(J7620) NEB ×2 (08:00→11:39)
[2017-10-23] MEDS: ADVAIR HFA 115/21MCG INHALER INH (08:22)
[2017-10-23] MEDS: predniSONE 20 MG TAB PO (08:41)
[2017-10-23] MEDS: PANTOPRAZOLE 40MG TAB (PROTONIX) PO (08:42)
[2017-10-23] MEDS: FUROSEMIDE 40 MG TAB PO (08:42)
[2017-10-23] MEDS: NICOTINE 21MG/24HR 1 EA TRANSDERMAL TD (08:43)
[2017-10-23] MEDS: ENOXAPARIN 80 MG/0.8 ML SYRINGE (J1650) SC (08:43)
[2017-10-23 09:22] LABS: BASO % 0.3 % (0.0-1.0); EOS % 0.2 % (0.0-3.0); HEMATOCRIT 47.9 % (36.0-47.0); HEMOGLOBIN 13.8 g/dl (12.0-15.5); IMMATURE GRANULOCYTE % 1.4 % (0-3.0); LYMPH # 1.7 10^3/uL (1.5-4.5); LYMPH % 28.2 % (24.0-44.0); MEAN CORPUSCULAR HEMOGLOBIN 26.6 pg (27.0-33.0); MEAN CORPUSCULAR HGB CONC 28.8 g/dl (32.0-36.5); MEAN CORPUSCULAR VOLUME 92.3 fl (80.0-96.0); MONO # 0.4 10^3/uL (0.0-0.8); MONO % 6.8 % (0.0-5.0); NEUTROPHILS # 3.7 10^3/uL (1.8-7.7); NEUTROPHILS % 63.1 % (36.0-66.0); PLATELET COUNT, AUTOMATED 209 10^3/uL (150-450); RED BLOOD COUNT 5.19 10^6/uL (4.00-5.40); RED CELL DISTRIBUTION WIDTH 15.6 % (11.5-14.5); WHITE BLOOD COUNT 5.9 10^3/uL (4.0-10.0)
[2017-10-23 09:41] LABS: ANION GAP 5 MEQ/L (8-16); BLOOD UREA NITROGEN 16 MG/DL (7-18); CALCIUM LEVEL 9.2 MG/DL (8.8-10.2); CARBON DIOXIDE LEVEL 41 MEQ/L (21-32); CHLORIDE LEVEL 103 MEQ/L (98-107); GLOMERULAR FILTRATION RATE > 60.0 (>45); GLUCOSE, FASTING 100 MG/DL (70-100); POTASSIUM SERUM 4.2 MEQ/L (3.5-5.1); SODIUM LEVEL 149 MEQ/L (136-145)
== END 2017-10-23 13:11 | disposition home or self-care (01) | DRG 291 ==
LOC: M ICU 10-17 11:40 → M MSPAV 10-19 12:35 → M ED 15:11 → M ED INP 18:52
DX: I50.33 Acute on chronic diastolic (congestive) heart failure (principal); J96.22 Acute and chronic respiratory failure with hypercapnia; J96.21 Acute and chronic respiratory failure with hypoxia; I26.99 Other pulmonary embolism without acute cor pulmonale; I82.411 Acute embolism and thrombosis of right femoral vein; J44.1 Chronic obstructive pulmonary disease with (acute) exacerbation; E87.0 Hyperosmolality and hypernatremia; I82.431 Acute embolism and thrombosis of right popliteal vein; F17.200 Nicotine dependence, unspecified, uncomplicated; Z79.899 Other long term (current) drug therapy; Z88.0 Allergy status to penicillin; I27.20 Pulmonary hypertension, unspecified; Z86.73 Personal history of transient ischemic attack (TIA), and cerebral infarction without residual deficits; R91.8 Other nonspecific abnormal finding of lung field

== ENCOUNTER 2017-10-25 19:13 | Emergency (ER) | payer OTHER ==
[2017-10-25] MEDS: SILVER NITRATE APPLICATOR TOP (20:45)
== END 2017-10-25 21:10 | disposition home or self-care (01) ==
LOC: M ED 19:13
DX: T80.89XA Other complications following infusion, transfusion and therapeutic injection, initial encounter (principal); Y84.8 Other medical procedures as the cause of abnormal reaction of the patient, or of later complication, without mention of misadventure at the time of the procedure; Z86.711 Personal history of pulmonary embolism; Z86.718 Personal history of other venous thrombosis and embolism; K21.9 Gastro-esophageal reflux disease without esophagitis; Z88.0 Allergy status to penicillin; Z79.899 Other long term (current) drug therapy; Z79.01 Long term (current) use of anticoagulants; Z79.52 Long term (current) use of systemic steroids; Z79.51 Long term (current) use of inhaled steroids
CPT/HCPCS: 99283

== ENCOUNTER → 2017-12-03 | Outpatient (CLI) | payer OTHER ==
[~2017-12-03] MED LIST: PROHANCE 279.3MG/ML 15ML VIAL (A9576) As Ordered
== END ==
LOC: M RAD 13:14
DX: R91.8 Other nonspecific abnormal finding of lung field (principal)
CPT/HCPCS: 71250

== ENCOUNTER → 2018-03-25 | Outpatient (CLI) | payer MEDICARE, OTHER | LOC: M RAD 17:25 | DX: I26.09 Other pulmonary embolism with acute cor pulmonale (principal) | CPT/HCPCS: 71250 ==

== ENCOUNTER → 2018-10-21 | Outpatient (CLI) | payer MEDICARE ==
[~2018-10-21] MED LIST changes: +ACET650T3 PO; +ADV250INH INH; +FURO40TA2 PO; +IBUP1TAB7 PO; +IPRA0.00 INH; +IPRA0.00 NEB; +LEVA250T13 PO; +LOVE0.6I2 SC; +METO25TA4 PO; +NICO21PAT TD; +PANT40TA3 PO; +PRED10TA2 PO; -PROHANCE 279.3MG/ML 15ML VIAL (A9576) As Ordered; +RANI150T PO; +VENTAER IN; +VENTAER INH; +XARE20TA PO
[2018-10-21 11:23] LABS: HEMATOCRIT 45.3 % (36.0-47.0); HEMOGLOBIN 12.9 g/dl (12.0-15.5); MEAN CORPUSCULAR HEMOGLOBIN 26.7 pg (27.0-33.0); MEAN CORPUSCULAR HGB CONC 28.5 g/dl (32.0-36.5); MEAN CORPUSCULAR VOLUME 93.8 fl (80.0-96.0); PLATELET COUNT, AUTOMATED 157 10^3/uL (150-450); RED BLOOD COUNT 4.83 10^6/uL (4.00-5.40); WHITE BLOOD COUNT 6.7 10^3/uL (4.0-10.0)
[2018-10-21 11:34] LABS: INR 2.4
--- NOTE | 2018-10-21 11:45 | REP ---
Clinical: Osteoarthritis. History of COPD . Comparison: 10/16/2017 . Technique: PA and lateral. Findings: The mediastinum and cardiac silhouette are normal. Subtle linear plate-like fibroatelectatic changes in the left mid lung zone noted to that no consolidation. No effusion. No pneumothorax. Skeletal structures intact. Impression: 1. No acute cardiopulmonary process. Electronically Signed by Demario Barros MD 10/21/2018 11:37 A
[2018-10-21 12:00] LABS: ALBUMIN 3.4 GM/DL (3.2-5.2); ALT/SGPT 24 U/L (12-78); BILIRUBIN,TOTAL 0.2 MG/DL (0.2-1.0); BLOOD UREA NITROGEN 14 MG/DL (7-18); CALCIUM LEVEL 10.2 MG/DL (8.8-10.2); CARBON DIOXIDE LEVEL 30 MEQ/L (21-32); CHLORIDE LEVEL 112 MEQ/L (98-107); CREATININE FOR GFR 0.84 MG/DL (0.55-1.30); GLOMERULAR FILTRATION RATE > 60.0 (>45); GLUCOSE, FASTING 94 MG/DL (70-100); POTASSIUM SERUM 4.6 MEQ/L (3.5-5.1); SODIUM LEVEL 148 MEQ/L (136-145); TOTAL PROTEIN 7.2 GM/DL (6.4-8.2)
[2018-10-21 12:03] LABS: ERYTHROCYTE SEDIMENTATION RATE 7 mm/hr (0-30)
--- NOTE | 2018-10-24 22:53 | ECGEPIP ---
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
== END ==
LOC: M LAB 10:45
PROVIDERS: ATTEND Physician Assistant Surgical
DX: M16.11 Unilateral primary osteoarthritis, right hip (principal)

== ENCOUNTER → 2018-11-08 | Outpatient (CLI) | payer MEDICARE ==
[~2018-11-08] MED LIST changes: +ENOX80IN3 SC; +PERC5TAB12 PO
== END ==
LOC: M PT 13:09
PROVIDERS: ATTEND Orthopaedic Surgery
DX: Z01.818 Encounter for other preprocedural examination (principal); M16.11 Unilateral primary osteoarthritis, right hip

== ENCOUNTER 2018-11-11 05:47 | Inpatient (IN) | payer MEDICARE ==
--- NOTE | 2018-11-09 21:07 | HPE ---
DATE OF ADMISSION: 11/11/2018 ATTENDING PHYSICIAN: Dr. Phil Singleton CHIEF COMPLAINT: Right hip pain and stiffness. HISTORY: This is a pleasant 68-year-old female patient with progressively worsening right hip pain and stiffness. She has failed to improve with conservative treatment and has elected for surgery for her continued symptoms. She has consented for a right total hip arthroplasty with Dr. Phil Singleton. ALLERGIES: No known drug allergies. CURRENT MEDICATIONS: - oxygen two liters continuous nasal at bedtime - Zantac 150 mg one by mouth at bedtime - Advair Diskus 250/50 mcg one by mouth twice a day - Xarelto 20 mg one tablet with food once daily - Ellipta 62.5 mcg one puff daily - colecalciferol 50,000 units one by mouth weekly - Tylenol #4 360 mg tablet one by mouth every eight hours as needed - pantoprazole sodium 40 mg tablet one by mouth daily - gabapentin 800 mg one by mouth three times a day - furosemide 40 mg one by mouth daily - fentanyl 100 mcg patch one transdermally every 72 hours PAST MEDICAL HISTORY: 1. Congestive heart failure. 2. Osteoarthritis. 3. Chronic obstructive pulmonary disease. 4. History of right leg deep vein thrombosis (DVT). PAST SURGICAL HISTORY: 1. Neck surgery in 1999. 2. Hysterectomy in 1983. 3. Cholecystectomy in 1987, gastric ulcers. FAMILY HISTORY: Father at 89 with congestive heart failure (CHF). Mother at 86 with CHF. SOCIAL HISTORY: The patient is a former smoker, does not use drugs or alcohol. REVIEW OF SYSTEMS: The patient denies fever, chills, chest pain, any new shortness of breath or cough. She reports stiffness and pain with weightbearing activities in the right hip. PHYSICAL EXAMINATION: Height 4 feet, 11 inches, weight 179, temperature 98.1, blood pressure 140/60, pulse 74, respirations 18. Examination today reveals a well-nourished, well-developed, alert female patient who comes in a wheelchair. Examination of the right hip reveals intact skin with no erythema, edema or ecchymosis. She has tenderness to palpation along the right groin line and difficulty with internal and external rotation of the right hip. The right lower extremity is well-perfused. Neck is supple and nontender with no lymphadenopathy or jugular venous distention (JVD). Lungs with no wheezes, rales, rhonchi. S1, S2 auscultated with a regular rate and rhythm. Abdomen is soft and nontender. EKG noted with sinus rhythm and sinus arrhythmia, incomplete right bundle branch block. Chest x-ray showed no acute cardiopulmonary process. LABORATORY DATA: White count 6.7, red blood count 4.8, hemoglobin 12.9, hematocrit 45.3, ESR 7, BUN 14, creatinine 0.84, PT 26, INR 2.4. Preoperative medical optimization by Sirisha Ca was present today on the chart and reviewed. The patient also received cardiac clearance from Dr. Salas. IMPRESSION: Right hip symptomatic osteoarthritis. PLAN: Consented for a right total hip arthroplasty by Dr. Singleton.
[~2018-11-11] VITALS: Ht 149.9 cm; Wt 81.2 kg
[2018-11-11] VITALS (9 sets, daily range): BP systolic 114–133; BP diastolic 51–64
[~2018-11-11 05:47] MED LIST changes: -ENOX80IN3 SC; -PERC5TAB12 PO
[2018-11-11] MEDS ORDERED: LIDOCAINE 1% MDV 20ML VIAL SQ PRN (06:00)
[2018-11-11] MEDS ORDERED: LR 1,000 ML IV ONE (06:30)
[2018-11-11] MEDS ORDERED: CLINDAMYCIN 900 MG in APPROPRIATE DILUENT 1 EA IV ONE (06:30)
[2018-11-11] MEDS ORDERED: TRANEXAMIC ACID 100 MG/ML 10ML VIAL As Ordered ONE (06:50)
[2018-11-11] MEDS ORDERED: CLINDAMYCIN 600 MG/50 ML PREMIX BAG As Ordered ONE (06:51)
[2018-11-11] MEDS ORDERED: EPINEPHrine INJ 1 MG/ML 1ML AMP As Ordered ONE (06:51)
[2018-11-11] MEDS ORDERED: BUPIVACAINE LIPOSOME/PF 1.3% 20ML VIAL (13.3MG/ML)(EXPAREL)(C9290 PER1MG) As Ordered ONE (06:51)
[2018-11-11] MEDS ORDERED: CLINDAMYCIN INJ 900MG/6ML VIAL As Ordered ONE (06:52)
[2018-11-11] MEDS ORDERED: ENOX80IN3 SC (07:02)
[2018-11-11] MEDS ORDERED: MIDAZOLAM INJ 2 MG/2 ML VIAL (J2250) As Ordered ONE (07:02)
[2018-11-11] MEDS ORDERED: fentaNYL 100 MCG/2 ML INJECTION (J3010) As Ordered ONE (07:02)
[2018-11-11] MEDS ORDERED: ePHEDrine SULFATE 25 MG/5 ML(5MG/ML) SYRINGE As Ordered ONE (08:20)
[2018-11-11] MEDS ORDERED: ACETAMINOPHEN 1000MG 100ML IV BTL (OFIRMEV) (J0131 PER 10MG) As Ordered ONE (08:20)
--- NOTE | 2018-11-11 08:48 | IPN ---
DATE: 11/11/2018 Patient seen and examined. She wished to go ahead with a right total hip arthroplasty. She understands the nature of this, the risks of bleeding, infection, damage to nerves, vessels, persistent pain, wear loosening, dislocation, leg length inequality, blood clots, medical problems, , among others. A preop clearance was obtained. She understands due to her medical problems and obesity that she is at increased risk of complications.
[2018-11-11] MEDS ORDERED: hydrALAZINE INJ 20 MG/ML VIAL As Ordered ONE (09:37)
[2018-11-11] MEDS: hydrALAZINE INJ 20 MG/ML VIAL IV SCH ×7 (09:40→10:15)
[2018-11-11] MEDS: fentaNYL 100 MCG/2 ML INJECTION (J3010) IV PRN ×4 (09:45→10:01)
[2018-11-11] MEDS ORDERED: ONDANSETRON 4MG/2ML VIAL (J2405) IV PRN ×2 (09:45→10:00)
[2018-11-11] MEDS: LABETALOL HCL 100 MG/20 ML VIAL IV SCH ×6 (09:45→10:10)
[2018-11-11] MEDS ORDERED: METOPROLOL TART 25 MG TABLET PO ONE (09:45)
[2018-11-11] MEDS ORDERED: LR 1,000 ML IV SCH ×2 (09:45→10:00)
[2018-11-11] MEDS: PERCOCET 5MG/325MG TAB PO PRN ×2 (09:59→10:42)
[2018-11-11] MEDS ORDERED: FLEET ENEMA PR PRN (10:00)
[2018-11-11] MEDS ORDERED: ACETAMINOPHEN TAB 650MG DOSE (2X325MG) PO PRN (10:00)
[2018-11-11] MEDS ORDERED: NORCO, ANEXSIA 5/325MG TABLET (HYDROcodone/ACETAMINOPHEN) PO PRN (10:00)
[2018-11-11] MEDS ORDERED: MORPHINE 4 MG/ML 1ML VIAL/SYRINGE (J2270) IV PRN (10:00)
[2018-11-11] MEDS: HYDROMORPHONE HCL 0.5 MG/ 0.5 ML SYRINGE (J1170 PER 1) IV PRN ×10 (10:05→11:34)
--- NOTE | 2018-11-11 10:09 | REP ---
Right hip: Two views. History: Postop. Findings: AP and cross-table lateral portably obtained radiographs of the right hip demonstrate right hip arthroplasty components in good position. Lateral skin nino and soft tissue swelling are seen. Electronically Signed by Fernando Lopez MD 11/11/2018 10:00 A
[2018-11-11] MEDS ORDERED: PROPOFOL 200 MG/20 ML VIAL As Ordered ONE (10:11)
[2018-11-11] MEDS ORDERED: LIDOCAINE 2% INJ 100 MG/5 ML SDV (FOR ANES.) As Ordered ONE (10:11)
[2018-11-11] MEDS ORDERED: diphenhydrAMINE INJ 50MG/ML VIAL (J1200) As Ordered ONE (10:20)
[2018-11-11] MEDS ORDERED: diphenhydrAMINE INJ 50MG/ML VIAL (J1200) IV ONE (11:15)
--- NOTE | 2018-11-11 13:08 | RO ---
DATE OF PROCEDURE: 11/11/2018 PREOPERATIVE DIAGNOSIS: Right hip osteoarthritis. POSTOPERATIVE DIAGNOSIS: Right hip osteoarthritis. PROCEDURE: Right total hip arthroplasty using a B[place] size 7 high offset size 52 cup and a 36 ball. SURGEON: Dr. Phil Singleton MANAGING CONSULTANT: Mr. Parviz Alvarez ANESTHESIA: Spinal ESTIMATED BLOOD LOSS: 200. COMPLICATIONS: None. INDICATIONS: 68-year woman who has had gradually worsening and severe right hip pain, unable to really perform much in the way of activities. She had somewhat of a flexion contracture as well. She wished to go ahead with surgical treatment having failed conservative management. She understood the nature of risks associated with this. PROCEDURE: The patient was taken to operating room, placed in the left lateral decubitus position on the [place] positioner. All areas were padded appropriately. The right hip was prepped and draped in usual sterile fashion. Time-out was performed. A longitudinal incision was made through the copious subcutaneous tissue down to the fascia. This was incised longitudinally exposing the back the abductors. I then divided the anterior 40% of the abductor off the anterior aspect the femur and dislocated the hip. I used the canal initiating reamer followed by the canal finding reamer lateralizing reamer and sequentially reamed up to a size 7 which had good bony purchase and good fit. I then used the broach to use as a template and cut the neck off at about half a fingerbreadth up from the lesser trochanter. Removed the head and directed attention the acetabulum and removed soft tissue from around the acetabulum. I then sequentially reamed medialized some up to 51 which had good bleeding bone. I had to irrigate and then bone graft some cysts which were curetted. I then placed a 52 cup in the appropriate amount of anteversion horizontal tilt impacted it in place, it was very well seated. I removed osteophytes from the anterior and posterior aspect. The attention was directed back to the femur. I sequentially broached up to a size 7 which was a little bit proud proximally but had a good fit proximally in both AP and medial lateral and I trialed off this. A 1.5 trial with 36 ball was placed and reduced the hip put the hip through range of motion and was very pleased with the stability and range of motion. There was minimal shuck in full extension. Soft tissue tension was appropriate, although she did have a little bit of a hip flexion contracture I did a mild ileus psoas release to try to help with that but I anticipated that she would have some hip flexion contracture due to her longstanding stiffness. I then removed the trial components, irrigated, impacted the 7 high offset stem and this was very well seated. I dried the taper, placed the +1.5 36 ball reduced the hip, put it through range of motion again, very pleased with stability, range of motion, there was no impingement. I irrigated, placed the TXA, repaired the minimus #1 Vicryl suture, the abductor with #1 Vicryl suture, several stitches being placed through the soft bone. The fascia janet was then closed #1 Vicryl suture in a running Stratafix. I placed the Exparel solution in the deep tissues, closed subcu with 2-0 Vicryl and the skin with nino. Sterile dressing was applied. She was taken to recovery room in stable condition. There were no known complications. The plan will be routine postoperative and total hip precautions. The reading assistant was instrumental holding retractors, assisting at reducing dislocating the hip and assisting in wound closure.
[2018-11-11] MEDS: MORPHINE 4 MG/ML 1ML VIAL/SYRINGE (J2270) IV PRN ×3 (15:00→21:12)
[2018-11-11] MEDS: CLINDAMYCIN 900 MG in APPROPRIATE DILUENT 1 EA IV SCH ×2 (15:01→23:52)
[2018-11-12 02:00] VITALS: BP 129/74
[2018-11-12] MEDS: PERCOCET 5MG/325MG TAB PO PRN ×5 (05:59→21:44)
[2018-11-12 06:00] VITALS: BP 130/57
[2018-11-12 06:11] LABS: HEMOGLOBIN 10.6 g/dl (12.0-15.5); MEAN CORPUSCULAR HEMOGLOBIN 28.1 pg (27.0-33.0); MEAN CORPUSCULAR HGB CONC 31.2 g/dl (32.0-36.5); MEAN CORPUSCULAR VOLUME 90.2 fl (80.0-96.0); PLATELET COUNT, AUTOMATED 122 10^3/uL (150-450); RED BLOOD COUNT 3.77 10^6/uL (4.00-5.40); WHITE BLOOD COUNT 6.2 10^3/uL (4.0-10.0)
[2018-11-12] MEDS ORDERED: PERC5TAB12 PO ×2 (06:32→06:34)
[2018-11-12 06:42] LABS: ALBUMIN 2.9 GM/DL (3.2-5.2); ALT/SGPT 21 U/L (12-78); BILIRUBIN,TOTAL 0.6 MG/DL (0.2-1.0); BLOOD UREA NITROGEN 15 MG/DL (7-18); CALCIUM LEVEL 9.8 MG/DL (8.8-10.2); CARBON DIOXIDE LEVEL 29 MEQ/L (21-32); CHLORIDE LEVEL 113 MEQ/L (98-107); CREATININE FOR GFR 0.82 MG/DL (0.55-1.30); GLOMERULAR FILTRATION RATE > 60.0 (>45); GLUCOSE, FASTING 159 MG/DL (70-100); POTASSIUM SERUM 3.7 MEQ/L (3.5-5.1); SODIUM LEVEL 147 MEQ/L (136-145); TOTAL PROTEIN 6.5 GM/DL (6.4-8.2)
--- NOTE | 2018-11-12 08:38 | CR.PDOC ---
General Date of Consultation: Nov 12, 2018 Consultation REASON FOR CONSULTATION/CHIEF COMPLAINT: s/p Rt Hip Arthroplasty HISTORY OF PRESENT ILLNESS: Pt is 68 y/o M with PMHx as outlined below underwent hip arthroplasty on right side 11/11/18. Upon my encounter pt is awake and alert, pt is in no acute distress. States pain is adequately controlled. Pt denies any breathing difficulty. Denies any chest pain or dizziness. VS, oxygenation and I/O within normal limits. Pt denies any abdominal pain, N/V. Pt has Hx of COPD and on Advair, Albuterol/Ipratropium at home. All inhalers can be resumed. PAST MEDICAL HISTORY: 1-COPD 2-Grade 1 Diastolic Dysfunction 3-Hx of DVT/PE 2017 4-Lung lesions, right upper lobe, 1.8 cm. A 9.4 cm lesion at the lingula 5-Pulmonary HTN 6-Hx of Nicotine dependence. PAST SURGICAL HISTORY: 1- Carotid Endarterectomy 2- Cholecystectomy 3- Hysterectomy ALLERGIES: Please see below. HOME MEDICATIONS: Please see below. FAMILY HISTORY: Father: heart disease Mother: heart disease Siblings: heart disease SOCIAL HISTORY: quit smoking last year after 40 years 1/2-1 PPD, denies ETOH, denies illicit drug use REVIEW OF SYSTEMS: 10 point ROS completed negative except as in HPI PHYSICAL EXAMINATION: VITAL SIGNS: Please see below. GENERAL APPEARANCE: pt is pleasant elderly lady lying comfortable in bed, no acute distress HEENT: VALREIA EOMI neck supple no icterus no JVD RESPIRATORY: good air entry no wheezing no rales CARDIOVASCULAR: S1 S2 RRR ABDOMEN: soft NT ND EXTREMITIES: no edema no tenderness NEUROLOGICAL: sensory motor grossly intact PSYCHIATRIC: mood affect appropriate Vital Signs Date Time Temp Pulse Resp B/P (MAP) Pulse Ox O2 Delivery O2 Flow Rate FiO2 11/12/18 06:45 92 11/12/18 06:30 14 11/12/18 06:00 98.2 88 20 130/57 (81) 98 2.0 11/12/18 05:59 16 11/12/18 02:00 98.7 88 16 129/74 (92) 93 2.0 11/11/18 23:52 16 11/11/18 22:00 100.1 82 17 130/58 (82) 96 2.0 11/11/18 21:37 18 7/15/19 21:12 18 11/11/18 19:45 2.0 11/11/18 18:10 98.2 77 16 126/62 (83) 98 2.0 11/11/18 17:52 18 11/11/18 17:10 98.3 74 16 127/64 (85) 98 2.0 11/11/18 16:10 98.3 74 17 127/64 (85) 95 2.0 11/11/18 15:10 98.5 71 15 116/59 (78) 99 2.0 11/11/18 15:00 18 11/11/18 15:00 18 11/11/18 14:10 98.5 71 18 114/61 (78) 97 2.0 11/11/18 13:10 98.4 80 18 126/61 (82) 99 2.0 11/11/18 12:40 98.4 75 18 133/56 (81) 96 2.0 11/11/18 12:25 2.0 11/11/18 12:10 98.5 83 20 129/51 (77) 95 2.0 11/11/18 12:06 18 11/11/18 11:50 79 18 129/59 (82) 98 2 11/11/18 11:45 97.0 79 18 136/66 (89) 97 2 11/11/18 11:40 80 20 137/73 (94) 97 2 11/11/18 11:35 80 18 133/64 (87) 98 2 11/11/18 11:34 18 11/11/18 11:30 97.0 75 16 130/58 (82) 99 2 11/11/18 11:25 74 18 131/60 (83) 100 2 11/11/18 11:25 18 11/11/18 11:20 78 16 143/55 (84) 98 2 11/11/18 11:16 18 11/11/18 11:15 97.1 77 16 140/66 (90) 97 2 11/11/18 11:10 79 18 112/53 (72) 93 11/11/18 11:09 18 11/11/18 11:05 77 16 126/61 (82) 92 11/11/18 11:00 97.2 76 16 128/59 (82) 93 11/11/18 10:59 18 11/11/18 10:55 76 18 135/62 (86) 95 11/11/18 10:50 77 18 136/57 (83) 96 11/11/18 10:45 97.0 77 18 128/59 (82) 96 11/11/18 10:42 18 11/11/18 10:40 79 16 116/62 (80) 96 11/11/18 10:35 85 18 118/60 (79) 94 11/11/18 10:30 97.1 81 16 132/60 (84) 96 11/11/18 10:29 18 11/11/18 10:25 82 16 179/74 (109) 95 11/11/18 10:24 18 11/11/18 10:20 91 18 126/74 (91) 94 11/11/18 10:18 18 11/11/18 10:15 96.9 76 20 119/64 (82) 96 11/11/18 10:11 18 11/11/18 10:10 76 20 140/84 (102) 96 11/11/18 10:05 77 18 183/89 (120) 95 11/11/18 10:05 18 11/11/18 10:01 18 11/11/18 10:00 97.1 80 20 182/95 (124) 95 11/11/18 09:59 18 11/11/18 09:56 20 11/11/18 09:55 79 18 209/107 (141) 96 11/11/18 09:50 78 16 207/113 (144) 95 11/11/18 09:50 18 11/11/18 09:45 79 16 159/96 (117) 94 11/11/18 09:45 16 11/11/18 09:40 80 18 149/89 (109) 95 11/11/18 09:35 76 16 203/139 (160) 96 11/11/18 09:30 97.8 74 16 188/89 (122) 95 11/11/18 09:28 77 14 215/84 (127) 95 11/11/18 09:27 77 14 185/81 (115) 96 11/11/18 09:25 96.9 75 14 95 Intake & Output 11/12/18 06:00 Intake Total 3460 ml Output Total 1300 ml Balance 2160 ml Laboratory Tests 11/12/18 05:43: White Blood Count 6.2, Red Blood Count 3.77L, Hemoglobin 10.6L, Hematocrit 34.0L, Mean Corpuscular Volume 90.2, Mean Corpuscular Hemoglobin 28.1, Mean Corpuscular Hemoglobin Concent 31.2L, Red Cell Distribution Width 15.2H, Platelet Count 122L, Nucleated Red Blood Cells % (auto) 0.0, Blood Urea Nitrogen 15, Creatinine 0.82, Sodium Level 147H, Potassium Level 3.7, Chloride Level 113H, Carbon Dioxide Level 29, Calcium Level 9.8, Aspartate Amino Transf (AST/SGOT) 20, Alanine Aminotransferase (ALT/SGPT) 21, Alkaline Phosphatase 91, Total Bilirubin 0.6, Total Protein 6.5, Albumin 2.9L, Anion Gap 5L, Glomerular Filtration Rate > 60.0, Fasting Glucose 159H, Albumin/Globulin Ratio 0.81L Current Medications Medications (Trade) Dose Ordered Sig/Ayah Route PRN Reason Start Time Stop Time Status Last Admin Dose Admin Acetaminophen/ Hydrocodone Bitart (Bozrah, Anexsia 5/325) 1 tab Q4H PRN PO MILD PAIN 11/11/18 10:00 11/11/18 23:52 1 TAB Oxycodone/ Acetaminophen (Percocet 5mg/ 325mg Tablet) 2 tab Q4HP PRN PO SEVERE PAIN (PS 8-10) 11/12/18 06:00 11/12/18 05:59 2 TAB LABORATORY DATA: Please see below. Imaging: Echo Aug, 2017 FINDINGS: The study is of acceptable technical quality. The patient is in sinus rhythm. Left ventricle is of normal size and systolic function with estimated left ventricular ejection fraction (LVEF) 60-65%. No segmental wall motion abnormalities are appreciated. Right ventricle does not appear enlarged. Left atrium is normal size. Right atrium is probably normal size as well. Aortic valve is minimally sclerotic, but has three cusps and normal mobility. Mitral and tricuspid valves appear normal. Pulmonic valve was not well seen. Trivial pericardial effusion is noted. Inferior vena cava is borderline dilated, but collapses with respiration indicative of likely normal or mildly elevated central venous pressure. Aortic root is normal. Aortic arch and abdominal aorta also appear normal. Doppler interrogation reveals no aortic stenosis or insufficiency. There is also no mitral valvular disease. There is trace tricuspid insufficiency. Calculated pulmonary artery pressure is at least in low 40s corresponding to moderate pulmonary hypertension. Mitral inflow pattern and tissue Doppler imaging of mitral annulus reveal grade 1 diastolic dysfunction. CONCLUSIONS: 1. Study is of acceptable technical quality. 2. Normal left ventricle (LV) size with normal LV systolic function and grade 1 diastolic dysfunction. 3. No significant valvular disease. 4. Elevated central venous pressure and at least moderate pulmonary hypertension. COMMENT: Subacute bacterial endocarditis (SBE) prophylaxis is not recommended. ASSESSMENT/PLAN: Pt is 68 y/o F with PMHx of COPD, pulmonary HTN, congestive heart failure with preserved EF, Hx of DVT/PE 2018, Hx of nicotine dependence who underwent Rt Hip Arthroplasty 11/11/18. 1.S/P Hip Arthroplasty pain control post op care as per primary team PT/OT recommend early ambulation in view of Hx of DVT/PE in the past 2.COPD currently stable no respiratory distress noted Supplement 2lit O2 prn via NC to maintain O2 sat 88-92% Cont Advair 2puff INH BID Albuterol/Ipratropium Neb q4hr prn wheezing dyspnea encourage incentive spirometry 3.Diastolic Heart Failure currently euvolemic monitor I/O cont home dose Lasix 40mg po daily Cont metoprolol home dose 25 BID 4.DVT prophylaxis early ambulation Xarelto 20mg daily Pt has Hx of DVT/PE in 2018 5.Lung Nodule F/U pulmonary clinic upon discharge Thank you for consultation. Vital Signs/I&O Vital Signs Date Time Temp Pulse Resp B/P (MAP) Pulse Ox O2 Delivery O2 Flow Rate FiO2 11/12/18 06:45 92 11/12/18 06:30 14 11/12/18 06:00 98.2 88 130/57 (81) 2.0 I&O- Last 24 Hours up to 6 AM 11/12/18 06:00 Intake Total 3460 ml Output Total 1300 ml Balance 2160 ml Laboratory Data Labs 24H Laboratory Tests 2 11/12/18 05:43: Nucleated Red Blood Cells % (auto) 0.0, Anion Gap 5L, Glomerular Filtration Rate > 60.0, Blood Urea Nitrogen 15, Creatinine 0.82, Sodium Level 147H, Potassium Level 3.7, Chloride Level 113H, Carbon Dioxide Level 29, Calcium Level 9.8, Aspartate Amino Transf (AST/SGOT) 20, Alanine Aminotransferase (ALT/SGPT) 21, Alkaline Phosphatase 91, Total Bilirubin 0.6, Total Protein 6.5, Albumin 2.9L, Albumin/Globulin Ratio 0.81L CBC/BMP Laboratory Tests 11/12/18 05:43 Red Blood Count 3.77 L, Mean Corpuscular Volume 90.2, Mean Corpuscular Hemoglobin 28.1, Mean Corpuscular Hemoglobin Concent 31.2 L, Red Cell Distribution Width 15.2 H, Calcium Level 9.8, Aspartate Amino Transf (AST/SGOT) 20, Alanine Aminotransferase (ALT/SGPT) 21, Alkaline Phosphatase 91, Total Bilirubin 0.6, Total Protein 6.5, Albumin 2.9 L Allergies Coded Allergies: Penicillins (Verified Allergy, Unknown, upset stomach; hives, 11/11/18) Home Medications Scheduled Enoxaparin Sodium (Enoxaparin Sodium) 80 Mg/0.8 Ml Syringe, 80 MG SC ONCE, (Reported) Furosemide (Furosemide) 40 Mg Tab, 40 MG PO DAILY, (Reported) Metoprolol Tartrate (Metoprolol Tartrate) 25 Mg Tablet, 25 MG PO BID, (Reported) Pantoprazole Sodium (Pantoprazole Sodium) 40 Mg Tab, 40 MG PO DAILY for 30 Days, #30 Rivaroxaban (Xarelto) 20 Mg Tablet, 20 MG PO QAM, (Reported) Salmeterol/Fluticasone (Advair 250-50 Diskus) 14 Puff/Inhaler Aerp, 1 PUFF INH BID, (Reported) Scheduled PRN Albuterol Sulfate (Ventolin Hfa) 108 Mcg/Act Aer, 2 PUFFS INH QID PRN for SHORTNESS OF BREATH, (Reported) Ipratropium/Albuterol Sulfate (Iprat-Albut 0.5-3(2.5) mg/3 ml) 1 Herb Herb, 1 HERB INH Q2H PRN for SHORTNESS OF BREATH, (Reported) Oxycodone HCl/Acetaminophen (Percocet 5-325 mg Tablet) 1 Each Tablet, 1 TAB PO Q4H PRN for PAIN, #20 Ranitidine HCl (Ranitidine HCl) 150 Mg Tab, 1 TAB PO BID PRN for HEARTBURN, (Reported) EDIE LICONA MD Nov 12, 2018 08:38
[2018-11-12] MEDS: MIRALAX *UNIT DOSE* 17GM PACKET PO SCH (09:00)
[2018-11-12] MEDS: MOM 30ML SUSPENSION UDC PO SCH (09:00)
[2018-11-12] MEDS: ADVAIR HFA 115/21MCG INHALER INH SCH ×2 (09:00→21:20)
[2018-11-12] MEDS: METOPROLOL TART 25 MG TABLET PO SCH ×2 (09:04→21:43)
[2018-11-12] MEDS: FUROSEMIDE 40 MG TAB PO SCH (09:04)
[2018-11-12] MEDS ORDERED: IPRATROPIUM 0.5MG/ALBUTEROL 2.5MG INH SOL UD 3ML (DUONEB)(J7620) NEB PRN (09:15)
[2018-11-12 10:00] VITALS: BP 122/76
[2018-11-12 14:00] VITALS: BP 128/68
[2018-11-12] MEDS: RIVAROXABAN 10 MG TAB (XARELTO) PO SCH (17:36)
[2018-11-12 22:00] VITALS: BP 144/72
[2018-11-13] MEDS: PERCOCET 5MG/325MG TAB PO PRN ×5 (02:11→22:04)
[2018-11-13 06:00] VITALS: BP 140/73
[2018-11-13] MEDS: ADVAIR HFA 115/21MCG INHALER INH SCH ×2 (06:41→18:27)
[2018-11-13 07:02] LABS: HEMATOCRIT 32.6 % (36.0-47.0); MEAN CORPUSCULAR HEMOGLOBIN 27.4 pg (27.0-33.0); MEAN CORPUSCULAR HGB CONC 30.7 g/dl (32.0-36.5); MEAN CORPUSCULAR VOLUME 89.3 fl (80.0-96.0); PLATELET COUNT, AUTOMATED 136 10^3/uL (150-450); RED BLOOD COUNT 3.65 10^6/uL (4.00-5.40); WHITE BLOOD COUNT 8.3 10^3/uL (4.0-10.0)
[2018-11-13] MEDS: FUROSEMIDE 40 MG TAB PO SCH (08:20)
[2018-11-13] MEDS: METOPROLOL TART 25 MG TABLET PO SCH ×2 (08:20→21:06)
[2018-11-13] MEDS: MOM 30ML SUSPENSION UDC PO SCH (08:20)
[2018-11-13] MEDS: MIRALAX *UNIT DOSE* 17GM PACKET PO SCH (08:21)
[2018-11-13 14:30] VITALS: BP 136/75
[2018-11-13] MEDS: ONDANSETRON 4 MG TAB (S0181) PO PRN (17:42)
[2018-11-13] MEDS: RIVAROXABAN 10 MG TAB (XARELTO) PO SCH (17:42)
[2018-11-13 22:00] VITALS: BP 128/62
[2018-11-14 06:00] VITALS: BP 119/46
[2018-11-14] MEDS: PERCOCET 5MG/325MG TAB PO PRN ×2 (06:07→12:34)
[2018-11-14] MEDS: ONDANSETRON 4 MG TAB (S0181) PO PRN (06:10)
[2018-11-14] MEDS: ADVAIR HFA 115/21MCG INHALER INH SCH (07:25)
[2018-11-14 08:34] VITALS: BP 119/46
[2018-11-14] MEDS: MOM 30ML SUSPENSION UDC PO SCH (08:34)
[2018-11-14] MEDS: METOPROLOL TART 25 MG TABLET PO SCH (08:34)
[2018-11-14] MEDS: FUROSEMIDE 40 MG TAB PO SCH (08:34)
[2018-11-14] MEDS: MIRALAX *UNIT DOSE* 17GM PACKET PO SCH (08:34)
== END 2018-11-14 12:52 | disposition home health service (06) | DRG 470 ==
LOC: M OR 05:47 → M MS5PR 11:58
PROVIDERS: ADMIT Orthopaedic Surgery; ATTEND Orthopaedic Surgery
PROC: 0SR902Z Replacement of Right Hip Joint with Metal on Polyethylene Synthetic Substitute, Open Approach (ICD-10-PCS; principal; 2018-11-11 07:30)
DX: M16.11 Unilateral primary osteoarthritis, right hip (principal); I50.32 Chronic diastolic (congestive) heart failure; J44.9 Chronic obstructive pulmonary disease, unspecified; Z86.718 Personal history of other venous thrombosis and embolism; I27.20 Pulmonary hypertension, unspecified; R91.8 Other nonspecific abnormal finding of lung field; Z87.891 Personal history of nicotine dependence; Z99.81 Dependence on supplemental oxygen; Z79.01 Long term (current) use of anticoagulants; Z79.899 Other long term (current) drug therapy; Z90.49 Acquired absence of other specified parts of digestive tract; Z90.710 Acquired absence of both cervix and uterus; Z88.0 Allergy status to penicillin

== ENCOUNTER → 2019-03-17 | Outpatient (CLI) | payer MEDICARE ==
[~2019-03-17] MED LIST changes: +ENOX80IN3 SC; +PERC5TAB12 PO
--- NOTE | 2019-03-17 14:22 | REP ---
CT CHEST WITHOUT CONTRAST: Low-dose screening study. HISTORY: Personal history of nicotine dependence. Comparison chest CT study March 25, 2018. December 03, 2017 and October 18, [address] prior chest CTs are also reviewed. CT FINDINGS: There are linear fibrotic changes in the left lower lobe and in the lingula at the left base. Right lower lobe fibrotic changes are seen more pronounced than on the prior study. The left base changes are unchanged from March 25, 2018. There are mild areas of pleural thickening at the right apex unchanged from the most recent prior study and improved from December 17, 2017 and October 17, 2017 prior exams. No pulmonary mass lesion or significant pulmonary nodule is appreciated. Vascular calcifications noted. IMPRESSION: Lung RADS category 1 benign findings. Repeat screening study recommended in 1 year. Electronically Signed by Fernando Lopez MD 03/17/2019 05:02 P
== END ==
LOC: M RAD 12:37
PROVIDERS: ATTEND Internal Medicine Pulmonary Disease
DX: Z87.891 Personal history of nicotine dependence (principal)

== ENCOUNTER → 2019-05-27 | Outpatient (CLI) | payer MEDICARE ==
[~2019-05-27] MED LIST changes: +ATOR1TAB19 PO; +GABA-845 PO
[2019-05-27 11:21] LABS: HEMATOCRIT 41.1 % (36.0-47.0); HEMOGLOBIN 11.1 g/dl (12.0-15.5); MEAN CORPUSCULAR HEMOGLOBIN 25.5 pg (27.0-33.0); MEAN CORPUSCULAR VOLUME 94.3 fl (80.0-96.0); PLATELET COUNT, AUTOMATED 193 10^3/uL (150-450); RED BLOOD COUNT 4.36 10^6/uL (4.00-5.40); WHITE BLOOD COUNT 6.5 10^3/uL (4.0-10.0)
[2019-05-27 11:32] LABS: INR 2.35; PROTHROMBIN TIME 25.5 SECONDS (11.8-14.0)
[2019-05-27 12:07] LABS: ALBUMIN 3.3 GM/DL (3.2-5.2); ALT/SGPT 13 U/L (12-78); BILIRUBIN,TOTAL 0.2 MG/DL (0.2-1.0); BLOOD UREA NITROGEN 17 MG/DL (7-18); CALCIUM LEVEL 10.1 MG/DL (8.8-10.2); CARBON DIOXIDE LEVEL 43 MEQ/L (21-32); CHLORIDE LEVEL 109 MEQ/L (98-107); GLOMERULAR FILTRATION RATE > 60.0 (>45); GLUCOSE, FASTING 112 MG/DL (70-100); POTASSIUM SERUM 4.2 MEQ/L (3.5-5.1); SODIUM LEVEL 151 MEQ/L (136-145)
[2019-05-27 12:25] LABS: ERYTHROCYTE SEDIMENTATION RATE 52 mm/hr (0-30)
--- NOTE | 2019-05-27 19:46 | REP ---
CHEST, TWO VIEWS: Two views of the chest are performed and compared to prior study of 10/21/2018. There is mild right bibasilar interstitial fibrotic change which appears stable. There is no acute infiltrate. The heart is normal in size. There is calcification of the thoracic aorta. Mediastinal silhouette is unchanged. There are mild degenerative changes of the spine. IMPRESSION: Stable chronic findings without acute infiltrate. Electronically Signed by Candido Batista MD 05/28/2019 10:31 P
--- NOTE | 2019-05-29 01:12 | ECGEPIP ---
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
== END ==
LOC: M LAB 10:03
PROVIDERS: ATTEND Orthopaedic Surgery
DX: Z01.818 Encounter for other preprocedural examination (principal); M16.12 Unilateral primary osteoarthritis, left hip; I50.9 Heart failure, unspecified; Z86.73 Personal history of transient ischemic attack (TIA), and cerebral infarction without residual deficits; Z79.01 Long term (current) use of anticoagulants

== ENCOUNTER 2019-06-11 19:06 | Inpatient (IN) | payer MEDICARE ==
[~2019-06-11] VITALS: Ht 149.9 cm; Wt 93.2 kg
[2019-06-11] MEDS: ATORVASTATIN 10 MG TAB PO SCH (21:00)
[2019-06-12] MEDS ORDERED: methylPREDNISolone INJ 125 MG/2 ML VIAL (J2930) IV ONE (00:15)
[2019-06-12] MEDS ORDERED: ACETAMINOPHEN TAB 650MG DOSE (2X325MG) PO ONE (00:15)
[2019-06-12 00:29] LABS: BASO % 0.4 % (0.0-1.0); EOS # 0.1 10^3/uL (0.0-0.5); HEMATOCRIT 37.9 % (36.0-47.0); HEMOGLOBIN 10.7 g/dl (12.0-15.5); LYMPH % 13.9 % (24.0-44.0); MEAN CORPUSCULAR HEMOGLOBIN 26.2 pg (27.0-33.0); MEAN CORPUSCULAR HGB CONC 28.2 g/dl (32.0-36.5); MEAN CORPUSCULAR VOLUME 92.7 fl (80.0-96.0); MONO # 0.5 10^3/uL (0.0-0.8); MONO % 6.8 % (0.0-5.0); NEUTROPHILS # 5.7 10^3/uL (1.5-8.5); NEUTROPHILS % 77.2 % (36.0-66.0); PLATELET COUNT, AUTOMATED 171 10^3/uL (150-450); RED BLOOD COUNT 4.09 10^6/uL (4.00-5.40); WHITE BLOOD COUNT 7.3 10^3/uL (4.0-10.0)
[2019-06-12] MEDS: IPRATROPIUM 0.5MG/ALBUTEROL 2.5MG INH SOL UD 3ML (DUONEB)(J7620) NEB PRN ×3 (00:38→01:36)
[2019-06-12 00:42] LABS: PARTIAL THROMBOPLASTIN TIME 33.4 SECONDS (25.0-38.4)
[2019-06-12 00:59] LABS: INFLUENZA A AMPLIFICATION NEGATIVE (NEGATIVE); INFLUENZA B AMPLIFICATION NEGATIVE (NEGATIVE)
[2019-06-12 01:02] LABS: ALBUMIN 3.3 GM/DL (3.2-5.2); ALT/SGPT 13 U/L (12-78); BILIRUBIN,DIRECT 0.1 MG/DL (0.0-0.2); BILIRUBIN,TOTAL 0.3 MG/DL (0.2-1.0); BLOOD UREA NITROGEN 13 MG/DL (7-18); CALCIUM LEVEL 9.3 MG/DL (8.8-10.2); CARBON DIOXIDE LEVEL 39 MEQ/L (21-32); CHLORIDE LEVEL 102 MEQ/L (98-107); CK-MB VALUE MASS < 1.0 NG/ML (<3.6); CPK CREATINE PHOSPHOKINASE 63 U/L (26-192); FREE T4 0.95 NG/DL (0.76-1.46); GLOMERULAR FILTRATION RATE > 60.0 (>45); GLUCOSE, FASTING 129 MG/DL (70-100); MB/CK RELATIVE INDEX 1.59 (< OR =4); POTASSIUM SERUM 3.9 MEQ/L (3.5-5.1); SODIUM LEVEL 145 MEQ/L (136-145); THYROID STIMULATING HORMONE 0.933 uIU/ML (0.358-3.740); TOTAL PROTEIN 7.2 GM/DL (6.4-8.2); TROPONIN I < 0.02 NG/ML (< 0.10)
[2019-06-12 01:03] LABS: INR 1.5; PROTHROMBIN TIME 17.9 SECONDS (11.8-14.0)
--- NOTE | 2019-06-12 01:30 | REPVR ---
PROCEDURE INFORMATION: Exam: XR Chest, 2 Views Exam date and time: 06/12/19 (12:28am) Age: 69 years old Clinical indication: Chest pain TECHNIQUE: Imaging protocol: XR of the chest Views: 2 views COMPARISON: Chest films of 05/27/19 Portable CXR of 10/16/17 FINDINGS: Lungs: No consolidation. Mildly prominent right basilar markings (unchanged). Faint linear density, left paracardiac region (unchanged) (probable atelectasis or scarring). Pleural space: Unremarkable. No pleural effusions. No pneumothorax. Heart/Mediastinum: No cardiomegaly. Aortic knob calcification (unchanged). Bones/joints: Unremarkable. IMPRESSION: No acute findings. No consolidation. No significant pleural effusions. Electronically signed by: Mellisa Miles On 06/12/2019 01:30:44 AM
--- NOTE | 2019-06-12 03:05 | HPEPDOC ---
General Date of Admission Jun 12, 2019 at 02:43 Date of Service: Jun 12, 2019 Chief Complaint The patient is a 69-year-old female admitted with a reason for visit of Copd W/Acute Exacerbation. Source: Patient Exam Limitations: No limitations Timing/Duration: Week(s) Severity: Moderate Associated Symptoms: Cough, Shortness of breath History of Present Illness Patient is 69 years old female with past medical history of COPD on 2 L at home, diastolic CHF, pulmonary embolism currently on xarelto presented hospital with increased cough and shortness of breath. Patient stated that for past few days she has been having increased shortness of breath was associated with increased cough. In emergency room patient was found to have no leukocytosis, negative flu test. Imaging study was negative for acute pulmonary infiltrates. Patient denied fever, chills, chest pain, palpitations, diarrhea or dysuria Home Medications Scheduled Atorvastatin Calcium (Atorvastatin Calcium) 10 Mg Tablet, 10 MG PO DAILY, (Reported) Furosemide (Furosemide) 40 Mg Tab, 40 MG PO DAILY, (Reported) Gabapentin (Gabapentin) 400 Mg Capsule, 800 MG PO TID, (Reported) Metoprolol Tartrate (Metoprolol Tartrate) 25 Mg Tablet, 25 MG PO BID, (Reported) Pantoprazole Sodium (Pantoprazole Sodium) 40 Mg Tab, 40 MG PO DAILY Rivaroxaban (Xarelto) 20 Mg Tablet, 20 MG PO QAM, (Reported) Salmeterol/Fluticasone (Advair 250-50 Diskus) 14 Puff/Inhaler Aerp, 1 PUFF INH BID, (Reported) Scheduled PRN Albuterol Sulfate (Ventolin Hfa) 108 Mcg/Act Aer, 2 PUFFS INH QID PRN for SHORTNESS OF BREATH, (Reported) Ipratropium/Albuterol Sulfate (Iprat-Albut 0.5-3(2.5) mg/3 ml) 1 Herb Herb, 1 HERB INH Q2H PRN for SHORTNESS OF BREATH, (Reported) Allergies Coded Allergies: Penicillins (Verified Allergy, Unknown, upset stomach; hives, 11/11/18) Past Medical History Medical History 1. Pulmonary embolism. 2. Right lower extremity deep vein thrombosis. 3. Lung lesions, right upper lobe, 1.8 cm. A 9.4 cm lesion at the lingula suspicious for malignancy. Repeat CT in 6 weeks and followup with Dr. Brennan. 4. Acute on chronic hypercapnic respiratory failure secondary to chronic obstructive pulmonary disease and pulmonary embolism. 5. Pulmonary hypertension secondary to lung disease. 6. Nicotine dependence. 7 arthritis. 8. Acute diastolic congestive heart failure with preserved ejection fraction, grade 1 diastolic dysfunction. 9. Hypernatremia. 10. Tobacco dependence. Surgical History Right hip replacement Family History I personally reviewed family history and found not pertinent Social History * Smoker: former Smoker Alcohol: Denies Drugs: denies A-FIB/CHADSVASC A-FIB History Current/History of A-Fib/PAF?: No Current PO Anticoag Therapy: No Review of Systems Constitutional: Denies: Chills, Fever Eyes: Denies: Pain, Vision change ENT: Denies: Head Aches, Ear Pain Skin: Denies: Rash, Lesions Pulmonary: Reports: Dyspnea, Cough Cardiovascular: Denies: Chest Pain, Palpitations Gastrointestinal: Denies: Nausea, Vomiting Genitourinary: Denies: Dysuria, Frequency Hematologic: Denies: Bruising Endocrine: Denies: Polydipsia, Polyphagia Musculoskeletal: Denies: Neck Pain, Back Pain Neurological: Denies: Weakness Psych: Reports: Mood Normal Physical Examination General Exam: Positive: Alert, Cooperative Eye Exam: Positive: PERRLA ENT Exam: Positive: Atraumatic Neck Exam: Positive: Supple; Negative: JVD Chest Exam: Positive: Wheezing, Diminished Heart Exam: Positive: Rate Normal Telemetry: Positive: No significant arrhythmia Extremity Exam: Positive: Clubbing; Negative: Cyanosis Skin Exam: Negative: Nl turgor and temperature Neuro Exam: Positive: Normal Gait, Strength at 5/5 X4 ext, Cranial Nerves 3-12 NL Psych Exam: Positive: Mental status NL Vital Signs Vital Signs Date Time Temp Pulse Resp B/P (MAP) Pulse Ox O2 Delivery O2 Flow Rate FiO2 06/12/19 02:20 95 24 85 Nasal Cannula 2.0 06/12/19 01:57 127/57 (80) 06/11/19 19:06 100.5 Laboratory Data Labs 24H Laboratory Tests 2 06/12/19 00:11: Immature Granulocyte % (Auto) 0.7, Neutrophils (%) (Auto) 77.2H, Lymphocytes (%) (Auto) 13.9L, Monocytes (%) (Auto) 6.8H, Eosinophils (%) (Auto) 1.0, Basophils (%) (Auto) 0.4, Neutrophils # (Auto) 5.7, Lymphocytes # (Auto) 1.0L, Monocytes # (Auto) 0.5, Eosinophils # (Auto) 0.1, Basophils # (Auto) 0.0, Nucleated Red Blood Cells % (auto) 0.0, Prothrombin Time 17.9H, Prothromb Time International Ratio 1.50, Activated Partial Thromboplast Time 33.4, Anion Gap 4L, Glomerular Filtration Rate > 60.0, Calcium Level 9.3, Total Bilirubin 0.3, Direct Bilirubin 0.1, Aspartate Amino Transf (AST/SGOT) 19, Alanine Aminotransferase (ALT/SGPT) 13, Alkaline Phosphatase 93, Total Creatine Kinase 63, Creatine Kinase MB < 1.0, Creatine Kinase MB Relative Index 1.59, Troponin I < 0.02, Total Protein 7.2, Albumin 3.3, Albumin/Globulin Ratio 0.85L, Thyroid Stimulating Hormone (TSH) 0.933, Free Thyroxine 0.95, Influenza Type A (RT-PCR) NEGATIVE, Influenza Type B (RT-PCR) NEGATIVE CBC/BMP Laboratory Tests 06/12/19 00:11 Assessment/Plan Patient is 69 years old female with past medical history of COPD on 2 L at home, diastolic CHF, pulmonary embolism currently on xarelto presented hospital with increased cough and shortness of breath. Patient stated that for past few days she has been having increased shortness of breath was associated with increased cough. In emergency room patient was found to have no leukocytosis, negative flu test. Imaging study was negative for acute pulmonary infiltrates Problems (1) COPD with acute exacerbation Status: Acute Problem Text: Most likely secondary to upper respiratory viral infection with bacterial coinfection I started levofloxacin IV Continue inhalers, steroids IV Incentive spirometry Sputum culture, respiratory panel (2) Dyspnea Status: Acute Problem Text: See above (3) CHF (congestive heart failure) Status: Chronic Problem Text: Not in acute exacerbation Continue home cardioprotective medications I's and O's Cardiac diet Plan / VTE VTE Prophylaxis Ordered?: Yes ROBBY LAY DO Jun 12, 2019 03:05
[2019-06-12] MEDS ORDERED: PROT1TAB2 PO (03:19)
[2019-06-12] MEDS ORDERED: GABA800T4 PO (03:19)
[2019-06-12] MEDS: LevoFLOXacin IV 500 MG in IV 1 EA IV SCH (04:19)
[2019-06-12 06:12] VITALS: BP 130/67
[2019-06-12] MEDS ORDERED: ACETAMINOPHEN TAB 650MG DOSE (2X325MG) PO PRN (07:00)
[2019-06-12] MEDS: IPRATROPIUM 0.5MG/ALBUTEROL 2.5MG INH SOL UD 3ML (DUONEB)(J7620) NEB SCH ×3 (07:05→22:54)
[2019-06-12] MEDS: ADVAIR HFA 230/21MCG INHALER INH SCH ×2 (07:05→22:54)
[2019-06-12 07:09] LABS: HEMATOCRIT 36.1 % (36.0-47.0); MEAN CORPUSCULAR HEMOGLOBIN 25.9 pg (27.0-33.0); MEAN CORPUSCULAR HGB CONC 27.7 g/dl (32.0-36.5); MEAN CORPUSCULAR VOLUME 93.5 fl (80.0-96.0); PLATELET COUNT, AUTOMATED 156 10^3/uL (150-450); RED BLOOD COUNT 3.86 10^6/uL (4.00-5.40); WHITE BLOOD COUNT 5.5 10^3/uL (4.0-10.0)
[2019-06-12 07:42] LABS: BLOOD UREA NITROGEN 15 MG/DL (7-18); CALCIUM LEVEL 9.6 MG/DL (8.8-10.2); CARBON DIOXIDE LEVEL 39 MEQ/L (21-32); CHLORIDE LEVEL 101 MEQ/L (98-107); CREATININE FOR GFR 0.93 MG/DL (0.55-1.30); GLOMERULAR FILTRATION RATE > 60.0 (>45); GLUCOSE, FASTING 220 MG/DL (70-100); POTASSIUM SERUM 3.9 MEQ/L (3.5-5.1); SODIUM LEVEL 145 MEQ/L (136-145)
[2019-06-12] MEDS ORDERED: ALBUTEROL SULFATE 2.5 MG/0.5 ML INH NEB SOLN NEB PRN (08:00)
[2019-06-12] MEDS: GABAPENTIN 400 MG CAP PO SCH ×3 (08:16→22:28)
[2019-06-12] MEDS: RIVAROXABAN 10 MG TAB (XARELTO) PO SCH (08:17)
[2019-06-12] MEDS: methylPREDNISolone INJ 125 MG/2 ML VIAL (J2930) IV SCH ×2 (08:17→15:43)
[2019-06-12] MEDS: FUROSEMIDE 40 MG TAB PO SCH (08:17)
[2019-06-12] MEDS: PANTOPRAZOLE 40MG TAB (PROTONIX) PO SCH (08:17)
[2019-06-12] MEDS: METOPROLOL TART 25 MG TABLET PO SCH ×2 (08:17→22:29)
[2019-06-12] MEDS ORDERED: RIVAROXABAN 10 MG TAB (XARELTO) PO SCH (09:00)
[2019-06-12 14:00] VITALS: BP 108/73
[2019-06-12 20:00] VITALS: BP 150/60
[2019-06-12] MEDS: ATORVASTATIN 10 MG TAB PO SCH (22:28)
[2019-06-13] MEDS: methylPREDNISolone INJ 125 MG/2 ML VIAL (J2930) IV SCH ×3 (00:32→16:09)
[2019-06-13 03:03] VITALS: O2SAT 98
[2019-06-13] MEDS: IPRATROPIUM 0.5MG/ALBUTEROL 2.5MG INH SOL UD 3ML (DUONEB)(J7620) NEB SCH ×4 (03:03→19:39)
[2019-06-13] MEDS: LevoFLOXacin IV 500 MG in IV 1 EA IV SCH (04:24)
--- NOTE | 2019-06-13 04:42 | ECGEPIP ---
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
[2019-06-13 06:00] VITALS: BP 132/61
[2019-06-13 07:21] LABS: HEMOGLOBIN 9.6 g/dl (12.0-15.5); MEAN CORPUSCULAR HEMOGLOBIN 25.8 pg (27.0-33.0); MEAN CORPUSCULAR HGB CONC 27.4 g/dl (32.0-36.5); MEAN CORPUSCULAR VOLUME 94.1 fl (80.0-96.0); PLATELET COUNT, AUTOMATED 167 10^3/uL (150-450); RED BLOOD COUNT 3.72 10^6/uL (4.00-5.40); WHITE BLOOD COUNT 6.5 10^3/uL (4.0-10.0)
[2019-06-13] MEDS: ADVAIR HFA 230/21MCG INHALER INH SCH ×2 (07:39→19:43)
[2019-06-13 07:49] LABS: BLOOD UREA NITROGEN 21 MG/DL (7-18); CALCIUM LEVEL 9.7 MG/DL (8.8-10.2); CARBON DIOXIDE LEVEL 40 MEQ/L (21-32); CHLORIDE LEVEL 104 MEQ/L (98-107); CREATININE FOR GFR 0.94 MG/DL (0.55-1.30); GLOMERULAR FILTRATION RATE > 60.0 (>45); GLUCOSE, FASTING 230 MG/DL (70-100); MAGNESIUM LEVEL 2.4 MG/DL (1.8-2.4); POTASSIUM SERUM 3.8 MEQ/L (3.5-5.1); SODIUM LEVEL 146 MEQ/L (136-145)
[2019-06-13] MEDS: RIVAROXABAN 10 MG TAB (XARELTO) PO SCH (08:31)
[2019-06-13] MEDS: GABAPENTIN 400 MG CAP PO SCH ×3 (08:31→20:38)
[2019-06-13] MEDS: PANTOPRAZOLE 40MG TAB (PROTONIX) PO SCH (08:32)
[2019-06-13] MEDS: FUROSEMIDE 40 MG TAB PO SCH (08:32)
[2019-06-13] MEDS: METOPROLOL TART 25 MG TABLET PO SCH ×2 (08:32→20:39)
--- NOTE | 2019-06-13 11:32 | IPNPDOC ---
Subjective Date Seen The patient was seen on 06/13/19. Subjective Chief Complaint/HPI Patient is feeling much better but still has some wheezing present General: Denies: ROS Unobtainable, Chills, Night Sweats, Fatigue, Malaise, Normal Appetite, Other Symptoms Skin: Denies: Rash, Lesions, Jaundice, Bruising, Itching, Dry, Breakdown, Nail Changes, Other Pulmonary: Reports: Dyspnea Cardiovascular: Denies: Chest Pain, Palpitations, Orthopnea, Paroxysmal Noc. Dyspnea, Edema, Lt Headedness, Other Symptoms Gastrointestinal: Denies: Nausea, Vomiting, Abdominal Pain, Diarrhea, Constipation, Melena, Hematochezia, Other Symptoms Genitourinary: Denies: Dysuria, Frequency, Incontinence, Hematuria, Retention, Other Symptoms Musculoskeletal: Denies: Neck Pain, Back Pain, Shoulder Pain, Arm Pain, Hand Pain, Leg Pain, Foot Pain, Joint Pain, Muscle Pain, Spasms, Other Symptoms Neurological: Denies: Weakness, Numbness, Incoordination, Change in speech, Confusion, Seizures, Other Symptoms Objective Physical Examination ENT Exam: Positive: Atraumatic Neck Exam: Positive: Supple; Negative: JVD Chest Exam: Positive: Wheezing, Diminished Heart Exam: Positive: Rate Normal Telemetry: Positive: No significant arrhythmia Extremity Exam: Positive: Clubbing; Negative: Cyanosis Skin Exam: Negative: Nl turgor and temperature Neuro Exam: Positive: Normal Gait, Strength at 5/5 X4 ext, Cranial Nerves 3-12 NL Assessment /Plan Problems (1) COPD with acute exacerbation Status: Acute Problem Text: Most likely secondary to upper respiratory viral infection with bacterial coinfection Patient has been started on Levaquin, nebulizer treatment and IV steroid Center spirometry also has been ordered Sputum culture and respiratory panel also has been ordered and reports are p ending Patient is gradually improving. Hopefully she'll be discharged home tomorrow (2) Chronic diastolic (congestive) heart failure Status: Chronic Problem Text: History of chronic diastolic heart failure. Patient is well compensated at the present time Continue all present home meds Plan/VTE VTE Prophylaxis Ordered?: Yes VS, I&O, 24H, Fishbone Vital Signs/I&O Vital Signs Date Time Temp Pulse Resp B/P (MAP) Pulse Ox O2 Delivery O2 Flow Rate FiO2 06/13/19 08:45 2.0 06/13/19 08:32 80 132/61 06/13/19 06:00 97.1 18 98 Nasal Cannula 06/13/19 03:03 32 I&O- Last 24 Hours up to 6 AM 06/13/19 06:00 Intake Total 1820 ml Output Total 1300 ml Balance 520 ml Laboratory Data 24H LABS Laboratory Tests 2 06/13/19 06:53: Nucleated Red Blood Cells % (auto) 0.0, Anion Gap 2L, Glomerular Filtration Rate > 60.0, Calcium Level 9.7, Magnesium Level 2.4 CBC/BMP Laboratory Tests 06/13/19 06:53 Microbiology Microbiology 06/12/19 Respiratory Virus Panel (PCR) ([facility]) - Final, Complete Respiratory Syncytial Virus RENO GUTIERREZ MD Jun 13, 2019 11:32
[2019-06-13 13:55] VITALS: BP 126/59
[2019-06-13] MEDS: ATORVASTATIN 10 MG TAB PO SCH (20:38)
[2019-06-13 22:00] VITALS: BP 120/59
[2019-06-14] MEDS: methylPREDNISolone INJ 125 MG/2 ML VIAL (J2930) IV SCH ×3 (00:14→16:40)
[2019-06-14] MEDS: IPRATROPIUM 0.5MG/ALBUTEROL 2.5MG INH SOL UD 3ML (DUONEB)(J7620) NEB SCH ×4 (02:45→19:46)
[2019-06-14] MEDS: LevoFLOXacin IV 500 MG in IV 1 EA IV SCH (04:37)
[2019-06-14 06:00] VITALS: BP 128/66
[2019-06-14 06:52] LABS: HEMATOCRIT 36.7 % (36.0-47.0); HEMOGLOBIN 9.9 g/dl (12.0-15.5); LYMPH # 0.4 10^3/uL (1.5-5.0); LYMPH % 5.2 % (24.0-44.0); MEAN CORPUSCULAR HEMOGLOBIN 25.8 pg (27.0-33.0); MEAN CORPUSCULAR VOLUME 95.6 fl (80.0-96.0); MONO # 0.3 10^3/uL (0.0-0.8); MONO % 3.8 % (0.0-5.0); NEUTROPHILS # 6.4 10^3/uL (1.5-8.5); NEUTROPHILS % 89.5 % (36.0-66.0); PLATELET COUNT, AUTOMATED 164 10^3/uL (150-450); RED BLOOD COUNT 3.84 10^6/uL (4.00-5.40); WHITE BLOOD COUNT 7.1 10^3/uL (4.0-10.0)
[2019-06-14 07:18] LABS: ALT/SGPT 17 U/L (12-78); BILIRUBIN,TOTAL 0.4 MG/DL (0.2-1.0); BLOOD UREA NITROGEN 26 MG/DL (7-18); CALCIUM LEVEL 10.5 MG/DL (8.8-10.2); CARBON DIOXIDE LEVEL 42 MEQ/L (21-32); CHLORIDE LEVEL 103 MEQ/L (98-107); CREATININE FOR GFR 0.87 MG/DL (0.55-1.30); GLOMERULAR FILTRATION RATE > 60.0 (>45); GLUCOSE, FASTING 224 MG/DL (70-100); POTASSIUM SERUM 3.9 MEQ/L (3.5-5.1); SODIUM LEVEL 146 MEQ/L (136-145); TOTAL PROTEIN 6.9 GM/DL (6.4-8.2)
[2019-06-14] MEDS: ADVAIR HFA 230/21MCG INHALER INH SCH ×2 (08:06→19:45)
[2019-06-14] MEDS: RIVAROXABAN 10 MG TAB (XARELTO) PO SCH (08:33)
[2019-06-14] MEDS: GABAPENTIN 400 MG CAP PO SCH ×3 (08:34→21:11)
[2019-06-14] MEDS: FUROSEMIDE 40 MG TAB PO SCH (08:34)
[2019-06-14] MEDS: PANTOPRAZOLE 40MG TAB (PROTONIX) PO SCH (08:34)
[2019-06-14] MEDS: METOPROLOL TART 25 MG TABLET PO SCH ×2 (08:34→21:10)
--- NOTE | 2019-06-14 11:10 | IPNPDOC ---
Subjective Date Seen The patient was seen on 06/14/19. Subjective Chief Complaint/HPI Patient is feeling much better. Offers no complaints. Wants to go home General: Denies: ROS Unobtainable, Chills, Night Sweats, Fatigue, Malaise, Normal Appetite, Other Symptoms Skin: Denies: Rash, Lesions, Jaundice, Bruising, Itching, Dry, Breakdown, Nail Changes, Other Pulmonary: Denies: Dyspnea, Cough, Pleuritic Chest Pain, Other Symptoms Cardiovascular: Denies: Chest Pain, Palpitations, Orthopnea, Paroxysmal Noc. Dyspnea, Edema, Lt Headedness, Other Symptoms Gastrointestinal: Denies: Nausea, Vomiting, Abdominal Pain, Diarrhea, Constipation, Melena, Hematochezia, Other Symptoms Musculoskeletal: Denies: Neck Pain, Back Pain, Shoulder Pain, Arm Pain, Hand Pain, Leg Pain, Foot Pain, Joint Pain, Muscle Pain, Spasms, Other Symptoms Neurological: Denies: Weakness, Numbness, Incoordination, Change in speech, Confusion, Seizures, Other Symptoms Objective Physical Examination ENT Exam: Positive: Atraumatic Neck Exam: Positive: Supple Chest Exam: Positive: Other (decreased wheezing with good air entry bilaterally) Heart Exam: Positive: Rate Normal Telemetry: Positive: No significant arrhythmia Extremity Exam: Positive: Clubbing Neuro Exam: Positive: Normal Gait, Strength at 5/5 X4 ext, Cranial Nerves 3-12 NL Assessment /Plan Problems (1) COPD with acute exacerbation Status: Acute Problem Text: Most likely secondary to upper respiratory viral infection with bacterial coinfection Patient has been started on Levaquin, nebulizer treatment and IV steroid Center spirometry also has been ordered Sputum culture and respiratory panel also has been ordered and reports are pending . She is improving very well. She is still has some residual wheezing And probably will be ready to be discharged in a.m. on Sunday (2) Chronic diastolic (congestive) heart failure Status: Chronic Problem Text: History of chronic diastolic heart failure. Patient is well compensated at the present time Continue all present home meds Plan/VTE VTE Prophylaxis Ordered?: Yes VS, I&O, 24H, Fishbone Vital Signs/I&O Vital Signs Date Time Temp Pulse Resp B/P (MAP) Pulse Ox O2 Delivery O2 Flow Rate FiO2 06/14/19 08:34 83 128/66 06/14/19 06:00 97.9 20 98 Nasal Cannula 2.0 2/14/20 03:03 32 I&O- Last 24 Hours up to 6 AM 06/14/19 06:00 Intake Total 1490 ml Output Total 400 ml Balance 1090 ml Laboratory Data 24H LABS Laboratory Tests 2 06/14/19 06:19: Immature Granulocyte % (Auto) 1.5, Neutrophils (%) (Auto) 89.5H, Lymphocytes (%) (Auto) 5.2L, Monocytes (%) (Auto) 3.8, Eosinophils (%) (Auto) 0.0, Basophils (%) (Auto) 0.0, Neutrophils # (Auto) 6.4, Lymphocytes # (Auto) 0.4L, Monocytes # (Auto) 0.3, Eosinophils # (Auto) 0.0, Basophils # (Auto) 0.0, Nucleated Red Blood Cells % (auto) 0.0, Anion Gap 1L, Glomerular Filtration Rate > 60.0, Marcial cium Level 10.5H, Total Bilirubin 0.4, Aspartate Amino Transf (AST/SGOT) 18, Alanine Aminotransferase (ALT/SGPT) 17, Alkaline Phosphatase 69, Total Protein 6.9, Albumin 3.0L, Albumin/Globulin Ratio 0.77L CBC/BMP Laboratory Tests 06/14/19 06:19 Microbiology Microbiology 06/12/19 Respiratory Virus Panel (PCR) ([facility]) - Final, Complete Respiratory Syncytial Virus RENO GUTIERREZ MD Jun 14, 2019 11:10
[2019-06-14 14:00] VITALS: BP 131/66
[2019-06-14 19:47] VITALS: O2SAT 95
[2019-06-14] MEDS: ATORVASTATIN 10 MG TAB PO SCH (21:10)
[2019-06-14 22:00] VITALS: BP 125/68
[2019-06-15] MEDS: methylPREDNISolone INJ 125 MG/2 ML VIAL (J2930) IV SCH ×4 (00:04→20:14)
[2019-06-15] MEDS: IPRATROPIUM 0.5MG/ALBUTEROL 2.5MG INH SOL UD 3ML (DUONEB)(J7620) NEB SCH ×5 (01:27→18:17)
[2019-06-15] MEDS: LevoFLOXacin IV 500 MG in IV 1 EA IV SCH (03:54)
[2019-06-15 06:00] VITALS: BP 153/76
[2019-06-15 07:13] LABS: BASO % 0.2 % (0.0-1.0); HEMATOCRIT 36.1 % (36.0-47.0); HEMOGLOBIN 9.9 g/dl (12.0-15.5); LYMPH # 0.5 10^3/uL (1.5-5.0); MEAN CORPUSCULAR HEMOGLOBIN 26.1 pg (27.0-33.0); MEAN CORPUSCULAR HGB CONC 27.4 g/dl (32.0-36.5); MONO # 0.2 10^3/uL (0.0-0.8); MONO % 3.7 % (0.0-5.0); NEUTROPHILS # 4.8 10^3/uL (1.5-8.5); NEUTROPHILS % 84.1 % (36.0-66.0); PLATELET COUNT, AUTOMATED 161 10^3/uL (150-450); WHITE BLOOD COUNT 5.7 10^3/uL (4.0-10.0)
[2019-06-15 07:42] LABS: ALBUMIN 2.9 GM/DL (3.2-5.2); ALT/SGPT 25 U/L (12-78); BILIRUBIN,TOTAL 0.2 MG/DL (0.2-1.0); BLOOD UREA NITROGEN 27 MG/DL (7-18); CALCIUM LEVEL 9.6 MG/DL (8.8-10.2); CARBON DIOXIDE LEVEL 41 MEQ/L (21-32); CHLORIDE LEVEL 105 MEQ/L (98-107); CREATININE FOR GFR 0.97 MG/DL (0.55-1.30); GLOMERULAR FILTRATION RATE > 60.0 (>45); GLUCOSE, FASTING 246 MG/DL (70-100); POTASSIUM SERUM 3.9 MEQ/L (3.5-5.1); SODIUM LEVEL 149 MEQ/L (136-145); TOTAL PROTEIN 6.8 GM/DL (6.4-8.2)
[2019-06-15] MEDS: GABAPENTIN 400 MG CAP PO SCH ×3 (08:36→20:15)
[2019-06-15] MEDS: RIVAROXABAN 10 MG TAB (XARELTO) PO SCH (08:36)
[2019-06-15] MEDS: METOPROLOL TART 25 MG TABLET PO SCH ×2 (08:36→20:15)
[2019-06-15] MEDS: PANTOPRAZOLE 40MG TAB (PROTONIX) PO SCH (08:36)
[2019-06-15] MEDS: FUROSEMIDE 40 MG TAB PO SCH (08:36)
[2019-06-15] MEDS: ADVAIR HFA 230/21MCG INHALER INH SCH ×2 (08:39→18:17)
--- NOTE | 2019-06-15 10:53 | IPNPDOC ---
Subjective Date Seen The patient was seen on 06/15/19. Subjective Chief Complaint/HPI Patient is still has significant wheezing even though patient does not offer any other complaint of worsening of symptoms General: Denies: ROS Unobtainable, Chills, Night Sweats, Fatigue, Malaise, Normal Appetite, Other Symptoms Skin: Denies: Rash, Lesions, Jaundice, Bruising, Itching, Dry, Breakdown, Nail Changes, Other Pulmonary: Reports: Dyspnea Cardiovascular: Denies: Chest Pain, Palpitations, Orthopnea, Paroxysmal Noc. Dyspnea, Edema, Lt Headedness, Other Symptoms Gastrointestinal: Denies: Nausea, Vomiting, Abdominal Pain, Diarrhea, Constipation, Melena, Hematochezia, Other Symptoms Genitourinary: Denies: Dysuria, Frequency, Incontinence, Hematuria, Retention, Other Symptoms Musculoskeletal: Denies: Neck Pain, Back Pain, Shoulder Pain, Arm Pain, Hand Pain, Leg Pain, Foot Pain, Joint Pain, Muscle Pain, Spasms, Other Symptoms Neurological: Denies: Weakness, Numbness, Incoordination, Change in speech, Confusion, Seizures, Other Symptoms Objective Physical Examination ENT Exam: Positive: Atraumatic Neck Exam: Positive: Supple Chest Exam: Positive: Wheezing (, bilateral expiratory wheezing is audible) Heart Exam: Positive: Rate Normal Telemetry: Positive: No significant arrhythmia Extremity Exam: Positive: Clubbing Neuro Exam: Positive: Normal Gait, Strength at 5/5 X4 ext, Cranial Nerves 3-12 NL Assessment /Plan Problems (1) COPD with acute exacerbation Status: Acute Problem Text: Most likely secondary to upper respiratory viral infection with bacterial coinfection pt was started on Levaquin, nebulizer treatment and IV steroids Patient most likely has a viral infection, not bacterial, hence we'll DC Levaquin at the present time Patient had still has significant wheezing Will increase the Solu-Medrol to 80 mg IV every 6 hours With increased DuoNeb every 4 hours while awake Incentive spirometry Patient was advised to ambulate and frequently as possible Sputum cultures are pending A.m. labs (2) Chronic diastolic (congestive) heart failure Status: Chronic Problem Text: History of chronic diastolic heart failure. Patient is well compensated at the present time Continue all present home meds Chest x-ray did not show any evidence of pulmonic congestion Plan/VTE VTE Prophylaxis Ordered?: Yes VS, I&O, 24H, Fishbone Vital Signs/I&O Vital Signs Date Time Temp Pulse Resp B/P (MAP) Pulse Ox O2 Delivery O2 Flow Rate FiO2 06/15/19 08:36 82 153/76 06/15/19 08:00 2.0 06/15/19 08:00 18 92 Nasal Cannula 06/15/19 06:00 99.0 06/13/19 03:03 32 I&O- Last 24 Hours up to 6 AM 06/15/19 06:00 Intake Total 2170 ml Output Total 3000 ml Balance -830 ml Laboratory Data 24H LABS Laboratory Tests 2 06/15/19 06:16: Immature Granulocyte % (Auto) 3.0, Neutrophils (%) (Auto) 84.1H, Lymphocytes (%) (Auto) 9.0L, Monocytes (%) (Auto) 3.7, Eosinophils (%) (Auto) 0.0, Basophils (%) (Auto) 0.2, Neutrophils # (Auto) 4.8, Lymphocytes # (Auto) 0.5L, Monocytes # (Auto) 0.2, Eosinophils # (Auto) 0.0, Basophils # (Auto) 0.0, Nucleated Red Blood Cells % (auto) 0.0, Anion Gap 3L, Glomerular Filtration Rate > 60.0, Calcium Level 9.6, Total Bilirubin 0.2, Aspartate Amino Transf (AST/SGOT) 18, Alanine Aminotransferase (ALT/SGPT) 25, Alkaline Phosphatase 73, Total Protein 6.8, Albumin 2.9L, Albumin/Globulin Ratio 0.74L CBC/BMP Laboratory Tests 06/15/19 06:16 Microbiology Microbiology 06/12/19 Respiratory Virus Panel (PCR) ([facility]) - Final, Complete Respiratory Syncytial Virus RENO GUTIERREZ MD Jun 15, 2019 10:53
[2019-06-15 11:13] LABS: NT-PRO BNP 456 PG/ML (<125)
--- NOTE | 2019-06-15 11:31 | REP ---
Clinical: COPD. CHF. Technique: PA and lateral. Comparison: 06/12/2019. Findings: Mediastinum and cardiac silhouette are normal. Lung gibbs demonstrate stable chronic-appearing changes. Trace atelectasis cannot be excluded. No consolidation. No effusion. No pneumothorax. Skeletal structures are intact. Impression: Stable chest x-ray. No focal consolidation or effusion. Electronically Signed by Demario Barros MD 06/15/2019 11:23 A
[2019-06-15 14:00] VITALS: BP 154/75
[2019-06-15] MEDS: ATORVASTATIN 10 MG TAB PO SCH (20:14)
[2019-06-15 22:00] VITALS: BP 161/86
[2019-06-16] MEDS: IPRATROPIUM 0.5MG/ALBUTEROL 2.5MG INH SOL UD 3ML (DUONEB)(J7620) NEB SCH ×4 (03:44→07:23)
[2019-06-16] MEDS: methylPREDNISolone INJ 125 MG/2 ML VIAL (J2930) IV SCH ×2 (04:03→08:06)
[2019-06-16] MEDS: LevoFLOXacin IV 500 MG in IV 1 EA IV SCH (04:04)
[2019-06-16 06:00] VITALS: BP 168/83
[2019-06-16 06:15] LABS: HEMATOCRIT 37.5 % (36.0-47.0); HEMOGLOBIN 10.4 g/dl (12.0-15.5); MEAN CORPUSCULAR HEMOGLOBIN 25.8 pg (27.0-33.0); MEAN CORPUSCULAR HGB CONC 27.7 g/dl (32.0-36.5); MEAN CORPUSCULAR VOLUME 93.1 fl (80.0-96.0); PLATELET COUNT, AUTOMATED 192 10^3/uL (150-450); RED BLOOD COUNT 4.03 10^6/uL (4.00-5.40); WHITE BLOOD COUNT 5.9 10^3/uL (4.0-10.0)
[2019-06-16 06:39] LABS: ALT/SGPT 30 U/L (12-78); BILIRUBIN,TOTAL 0.2 MG/DL (0.2-1.0); BLOOD UREA NITROGEN 29 MG/DL (7-18); CALCIUM LEVEL 9.5 MG/DL (8.8-10.2); CARBON DIOXIDE LEVEL 44 MEQ/L (21-32); CHLORIDE LEVEL 103 MEQ/L (98-107); CREATININE FOR GFR 0.88 MG/DL (0.55-1.30); GLOMERULAR FILTRATION RATE > 60.0 (>45); GLUCOSE, FASTING 234 MG/DL (70-100); POTASSIUM SERUM 3.5 MEQ/L (3.5-5.1); SODIUM LEVEL 150 MEQ/L (136-145)
[2019-06-16 06:45] LABS: LYMPHOCYTES 13 % (16-44); MONOCYTES 2 % (0-5); NEUTROPHILS 85 % (28-66); PLATELET ESTIMATE NORMAL (NORMAL)
[2019-06-16] MEDS: ADVAIR HFA 230/21MCG INHALER INH SCH (07:23)
[2019-06-16] MEDS: GABAPENTIN 400 MG CAP PO SCH (08:06)
[2019-06-16] MEDS: RIVAROXABAN 10 MG TAB (XARELTO) PO SCH (08:06)
[2019-06-16] MEDS: PANTOPRAZOLE 40MG TAB (PROTONIX) PO SCH (08:06)
[2019-06-16 08:07] VITALS: BP 168/83
[2019-06-16] MEDS: METOPROLOL TART 25 MG TABLET PO SCH (08:07)
[2019-06-16] MEDS: FUROSEMIDE 40 MG TAB PO SCH (08:07)
[2019-06-16] MEDS ORDERED: PRED10TA2 PO (09:33)
[2019-06-16] MEDS ORDERED: LEVA1TAB2 PO (09:33)
--- NOTE | 2019-06-16 11:28 | DS.PDOC ---
Discharge Summary General Date of Admission Jun 12, 2019 at 02:43 Date of Discharge 06/16/19 Discharge Summary PROCEDURES PERFORMED DURING STAY: None. ADMITTING DIAGNOSES: 1. Exacerbation of COPD. DISCHARGE DIAGNOSES: 1. Exacerbation of COPD, white male infection with RSV history of chronic diastolic heart failure, history of pulmonary embolus. COMPLICATIONS/CHIEF COMPLAINT: Copd W/Acute Exacerbation. HISTORY OF PRESENT ILLNESS: Patient is 69 years old female with past medical history of COPD on 2 L at home, diastolic CHF, pulmonary embolism currently on xarelto presented hospital with increased cough and shortness of breath. Patient stated that for past few days she has been having increased shortness of breath was associated with increased cough. In emergency room patient was found to have no leukocytosis, negative flu test. Imaging study was negative for acute pulmonary infiltrates. Patient denied fever, chills, chest pain, palpitations, diarrhea or dysuria. HOSPITAL COURSE: Patient was admitted with exacerbation of COPD Most likely secondary to upper respiratory viral infection with bacterial coinfection pt was started on Levaquin, nebulizer treatment and IV steroids Patient most likely has a viral infection, not bacterial, hence we'll DC Levaquin at the present time Was continued on a blood the treatment every 4 hours, also IV steroids 80 mg IV every 6 hours, which has been changed to by mouth prednisone on discharge Patient does not acquired antibiotics as most likely exacerbation of COPD was secondary to viral infection infection with RSV Patient's respiratory status is at within normal limits, she is afebrile, asymptomatic and ambulatory Is clinically asymptomatic, afebrile. No more shortness of breath. She will be discharged home on all current home medications Pt has been advised to follow with the primary care physician in one week History of chronic diastolic heart failure. Patient is well compensated at the present time Continue all present home meds Chest x-ray did not show any evidence of pulmonic congestion while she was in the hospital.. DISCHARGE MEDICATIONS: Please see below. ALLERGIES: Please see below. PHYSICAL EXAMINATION ON DISCHARGE: VITAL SIGNS: Please see below. GENERAL: Within normal limits HEENT: PERRLA. Extraocular muscles intact NECK: Supple CARDIOVASCULAR EXAMINATION: S1, S2, regular RESPIRATORY EXAMINATION: Clear to A&P ABDOMINAL EXAMINATION: Benign EXTREMITIES: No clubbing, cyanosis, edema SKIN: Normal NEUROLOGICAL EXAMINATION: . No focal motor sensory deficit PSYCHIATRIC EXAMINATION: Normal LABORATORY DATA: Please see below. IMAGING: CXR: Patient is 69 years old female with past medical history of COPD on 2 L at home, diastolic CHF, pulmonary embolism currently on xarelto presented hospital with increased cough and shortness of breath. Patient stated that for past few days she has been having increased shortness of breath was associated with increased cough. In emergency room patient was found to have no leukocytosis, negative flu test. Imaging study was negative for acute pulmonary infiltrates. Patient denied fever, chills, chest pain, palpitations, diarrhea or dysuria PROGNOSIS: Good ACTIVITY: As tolerated. DIET: As tolerated DISCHARGE PLAN: DC home DISPOSITION: Home, Self-Care. DISCHARGE INSTRUCTIONS: 1. As per discharge instructions. ITEMS TO FOLLOWUP ON ON OUTPATIENT: 1. Follow with PCP in one week. DISCHARGE CONDITION: Stable. TIME SPENT ON DISCHARGE: 35 minutes. Vital Signs/I&Os Vital Signs Date Time Temp Pulse Resp B/P (MAP) Pulse Ox O2 Delivery O2 Flow Rate FiO2 06/16/19 08:07 87 168/83 06/16/19 08:00 2.0 06/16/19 06:00 98.7 22 90 Nasal Cannula 06/13/19 03:03 32 I&O- Last 24 Hours up to 6 AM 06/16/19 06:00 Intake Total 1750 ml Output Total 2500 ml Balance -750 ml Laboratory Data Labs 24H Laboratory Tests 2 06/16/19 05:46: Immature Granulocyte % (Auto) , Neutrophils (%) (Auto) , Nucleated Red Blood Cells % (auto) 0.3H, Neutrophils 85H, Lymphocytes (Manual) 13L, Monocytes (Manual) 2, Red Blood Cell Morphology NORMAL, Platelet Estimate NORMAL, Anion Gap 3L, Glomerular Filtration Rate > 60.0, Calcium Level 9.5, Total Bilirubin 0.2, Aspartate Amino Transf (AST/SGOT) 13, Alanine Aminotransferase (ALT/SGPT) 30, Alkaline Phosphatase 69, Total Protein 7.0, Albumin 3.0L, Albumin/Globulin Ratio 0.75L CBC/BMP Laboratory Tests 06/16/19 05:46 Microbiology Microbiology 06/12/19 Respiratory Virus Panel (PCR) ([facility]) - Final, Complete Respiratory Syncytial Virus Discharge Medications Scheduled Atorvastatin Calcium (Atorvastatin Calcium) 10 Mg Tablet, 10 MG PO QHS, (Reported) Furosemide (Furosemide) 40 Mg Tab, 40 MG PO BID, (Reported) Gabapentin (Gabapentin) 800 Mg Tablet, 800 MG PO TID, (Reported) Levofloxacin (Levaquin) 500 Mg Tablet, 500 MG PO DAILY@06 Metoprolol Tartrate (Metoprolol Tartrate) 25 Mg Tablet, 25 MG PO BID, (Reported) Pantoprazole Sodium (Protonix) 40 Mg Tablet.dr, 40 MG PO DAILY, (Reported) Prednisone (Prednisone) 10 Mg Tablet, 10 MG PO TAPER Take 4 tabs daily x 3 days, then 3 tabs daily x 3 days, then 2 tabs daily x 3 days, then 1 tab daily x 3 days and stop Rivaroxaban (Xarelto) 20 Mg Tablet, 20 MG PO DAILY, (Reported) Salmeterol/Fluticasone (Advair 250-50 Diskus) 14 Puff/Inhaler Aerp, 1 PUFF INH BID, (Reported) Scheduled PRN Albuterol Sulfate (Ventolin Hfa) 108 Mcg/Act Aer, 2 PUFFS INH Q4H PRN for SHORTNESS OF BREATH, (Reported) Ipratropium/Albuterol Sulfate (Iprat-Albut 0.5-3(2.5) mg/3 ml) 1 Pilar Pilar, 3 ML INH Q4H PRN for SHORTNESS OF BREATH, (Reported) Allergies Coded Allergies: Penicillins (Verified Allergy, Unknown, upset stomach; hives, 11/11/18) RENO GUTIERREZ MD Jun 16, 2019 11:28
[2019-06-17] MEDS ORDERED: LevoFLOXacin 500 MG TABLET PO SCH (06:00)
== END 2019-06-16 10:55 | disposition home or self-care (01) | DRG 191 ==
LOC: M ED 19:06 → M ED INP 06-12 02:43 → ENRESERV 06-12 04:33 → M MS5PR 06-12 05:54
PROVIDERS: ADMIT Internal Medicine; ATTEND Internal Medicine
DX: J44.1 Chronic obstructive pulmonary disease with (acute) exacerbation (principal); I50.32 Chronic diastolic (congestive) heart failure; J06.9 Acute upper respiratory infection, unspecified; Z79.01 Long term (current) use of anticoagulants; Z86.711 Personal history of pulmonary embolism; Z79.899 Other long term (current) drug therapy; Z88.0 Allergy status to penicillin; Z86.718 Personal history of other venous thrombosis and embolism; Z87.891 Personal history of nicotine dependence; Z96.641 Presence of right artificial hip joint

== ENCOUNTER → 2019-08-04 | Outpatient (CLI) | payer MEDICARE ==
[~2019-08-04] MED LIST changes: +GABA800T4 PO; +LEVA1TAB2 PO; +PROT1TAB2 PO
--- NOTE | 2019-08-04 10:56 | REP ---
REASON FOR EXAM: Followup. All priors were reviewed, the latest of which is dated 03/17/2019, a low does screening CT examination of the lungs. The mediastinum and pulmonary hina are unchanged from 03/25/2018, the latest standard noncontrast-enhanced chest CT. Note is again made of a prominent but stable right paratracheal lymph node. There is a tiny left pleural effusion. There is no change in the imaged upper abdomen or imaged osseous structures. Evaluation of the lung gibbs shows a patchy left basilar opacity representing a change from the prior exams. The lung gibbs are otherwise essentially stable. There is basilar cylindrical bronchiectasis bilaterally. IMPRESSION: 1. There is a new small left pleural effusion seen in conjunction with a left basilar patchy opacity suggestive of acute pneumonia. This examination needs to be correlated clinically with appropriate followup. Certainly, subsegmental atelectatic change with a small nonrelated left pleural effusion could be responsible for the finding. 2. Other findings as described above. Electronically Signed by Froy Moctezuma DO 08/04/2019 11:48 A
== END ==
LOC: M RAD 09:30
PROVIDERS: ATTEND Physician Assistant
DX: R91.8 Other nonspecific abnormal finding of lung field (principal)

== ENCOUNTER → 2019-09-04 | Outpatient (REF) | payer MEDICARE | LOC: M LAB REF 17:44 | PROVIDERS: ATTEND Internal Medicine Pulmonary Disease | DX: J44.9 Chronic obstructive pulmonary disease, unspecified (principal) ==